=== PATIENT | female | born 1985 | race African-American/Black ===

== ENCOUNTER 2017-11-10 06:52 | Observation (INO) | payer SELFPAY ==
[2017-11-10] MEDS ORDERED: MAGNE/ALUM HYDROXD 30 ML UCUP ONE (07:15)
[2017-11-10] MEDS ORDERED: NA CHLORIDE 0.9% 1,000 ML ONE ×2 (07:32→10:20)
[2017-11-10] MEDS ORDERED: LIDOCAINE VISCOUS 2% SOLN 15 ML UDC ONE (07:32)
[2017-11-10] MEDS ORDERED: ONDANSETRON 4 MG/2 ML VIAL ONE (07:32)
[2017-11-10 07:46] LABS: Absolute Lymphocytes (CBC) 1.5 K/uL (0.7-4.9); Absolute Monocytes 0.5 K/uL (0.1-1.3); Absolute Neutrophil 7.1 K/uL (1.8-8.0); Basophils % 0.4 % (0-1.3); Eosinophils % 0.8 % (0-4.4); Hematocrit 35.4 % (36.0-45.0); MCH 27.1 pg (27.0-35.0); MCV 81.2 fL (80-100); MPV 9.3 fL (7.6-11.3); Monocytes % 5.1 % (3.3-12.3); RBC Red Blood Cell Count 4.36 M/uL (3.86-4.86)
[2017-11-10 07:56] LABS: ALT/SGPT 19 U/L (12-78); AST/SGOT 16 U/L (15-37); Albumin 3.1 g/dL (3.4-5.0); Alkaline Phosphatase 88 U/L (45-117); Amylase Level 44 U/L (25-115); BUN Blood Urea Nitrogen 8 mg/dL (7-18); Bicarbonate 28 mmol/L (21-32); Bilirubin Direct 0.1 mg/dL (0-0.2); Bilirubin Total 0.4 mg/dL (0.2-1.0); Glucose Level 115 mg/dL (74-106); Lipase 135 U/L (73-393); Potassium 3.7 mmol/L (3.5-5.1); Protein, Total 8.3 g/dL (6.4-8.2); Sodium Level 139 mmol/L (136-145)
[2017-11-10] MEDS ORDERED: KETOROLAC 30 MG/ML INJ ONE (07:58)
[2017-11-10 08:35] LABS: Urine Blood 3+ (NEG); Urine Glucose NEGATIVE (NEG); Urine Protein 1+ (NEG); Urine Specific Gravity 1.025 (1.005-1.030); Urine pH 7.5 (5.0-7.0)
--- NOTE | 2017-11-10 09:23 | RAD REPORT ---
EXAM DESCRIPTION: US - Abdomen Exam Limited - 11/10/2017 7:53 am CLINICAL HISTORY: Abdominal pain. Nausea and vomiting COMPARISON: None. FINDINGS: A 1 centimeter gallstone is present. The gallbladder wall measures 4 millimeters. The biliary tree is normal caliber. IMPRESSION: Cholelithiasis Mild gallbladder wall thickening may indicate cholecystitis
--- NOTE | 2017-11-10 09:54 | ER ---
Nurse's Notes [facility] Name: Hilda Myers Age: 32 yrs Sex: Female : 1985 Arrival Date: 11/10/2017 Time: 06:55 Bed 20 Private MD: Diagnosis: Cholecystitis;Cholelithiasis Presentation: 11/10 07:08 Presenting complaint: Patient states: upper abd. pain x 6 days with N/V. Transition of jl7 care: patient was not received from another setting of care. Onset of symptoms was November 04, 2017. Risk Assessment: Do you want to hurt yourself or someone else? Patient reports no desire to harm self or others. Initial Sepsis Screen: Does the patient meet any 2 criteria? No. Patient's initial sepsis screen is negative. Does the patient have a suspected source of infection? No. Patient's initial sepsis screen is negative. Care prior to arrival: None. 07:08 Method Of Arrival: Ambulatory jl7 07:08 Acuity: JOY 3 jl7 Triage Assessment: 07:10 General: Appears in no apparent distress. uncomfortable, Behavior is calm, cooperative, jl7 appropriate for age. Pain: Complains of pain in left upper quadrant and right upper quadrant and epigastric area Pain does not radiate. Pain currently is 10 out of 10 on a pain scale. GI: Abdomen is round non-distended, Abd is soft X 4 quads Abdomen is tender to palpation in right upper quadrant and left upper quadrant. 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 - Social history:: Smoking status: Patient/guardian denies using tobacco. - Ebola Screening: : No symptoms or risks identified at this time. Screenin:35 Abuse screen: Denies threats or abuse. Denies injuries from another. Nutritional ch screening: No deficits noted. Tuberculosis screening: No symptoms or risk factors identified. Fall Risk None identified. Assessment: 07:35 Reassessment: Patient appears in no apparent distress at this time. Patient and/or ch family updated on plan of care and expected duration. Pain level reassessed. Patient is alert, oriented x 3, equal unlabored respirations, skin warm/dry/pink. General: Appears in no apparent distress. uncomfortable, Behavior is cooperative, appropriate for age. Pain: Complains of pain in abdomen and left upper quadrant and right upper quadrant and epigastric area Pain currently is 8 out of 10 on a pain scale. Pain began gradually, a week ago. Neuro: No deficits noted. Respiratory: Airway is patent Respiratory effort is even, unlabored, Breath sounds are diminished bilaterally. pt has a lot of mass, lung sounds slightly dimished due to mass, sound more distant than diminished. GI: Bowel sounds present X 4 quads. Abd is soft and non tender X 4 quads. Reports upper abdominal pain, nausea, vomiting. GI: Abdomen is round obese. Derm: No signs and/or symptoms reported regarding the dermatologic system. Skin is normal, brown. Musculoskeletal: Circulation, motion, and sensation intact. Capillary refill < 3 seconds, in bilateral fingers. toes. Range of motion: intact in all extremities, Swelling absent. 09:21 Reassessment: Patient appears in no apparent distress at this time. Patient and/or ch family updated on plan of care and expected duration. Pain level reassessed. Patient is alert, oriented x 3, equal unlabored respirations, skin warm/dry/pink. pt sleeping in room, no s/s of distress. Patient states feeling better. Patient states symptoms have improved. 09:54 Reassessment: Patient appears in no apparent distress at this time. Patient and/or ch family updated on plan of care and expected duration. Pain level reassessed. Patient is alert, oriented x 3, equal unlabored respirations, skin warm/dry/pink. Patient states feeling better. Patient states symptoms have improved. 09:59 Reassessment: Dr. West at bedside discussing plan of care with pt. ch 10:26 Reassessment: Patient appears in no apparent distress at this time. Patient and/or ch family updated on plan of care and expected duration. Pain level reassessed. Patient is alert, oriented x 3, equal unlabored respirations, skin warm/dry/pink. pt changed out of her clothes, verb understanding of NPO, fluids started. resps even and unlabored. Patient states feeling better. Patient states symptoms have improved. Vital Signs: 07:10 BP 145 / 99; Pulse 93; Resp 18 S; Temp 97.9(TE); Pulse Ox 97% on R/A; Weight 158.76 kg jl7 (R); Height 5 ft. 3 in. (160.02 cm) (R); Pain 10/10; 07:35 BP 147 / 100; Pulse 85; Resp 22; Temp 98.3; Pulse Ox 99% on R/A; Pain 8/10; ch 09:21 BP 124 / 62; Pulse 78; Resp 12; Pulse Ox 92% on R/A; Pain 0/10; ch 09:54 BP 136 / 78; Pulse 76; Resp 14; Temp 97.9; Pulse Ox 99% on R/A; Pain 2/10; ch 07:10 Body Mass Index 62.00 (158.76 kg, 160.02 cm) jl7 ED Course: 06:55 Patient arrived in ED. es 07:01 Jami Garcia FNP-C is PHCP. kb 07:01 Scott Bright MD is Attending Physician. kb 07:06 Maribel Salas, XAVIER is Primary Nurse. 07:09 Triage completed. jl7 07:10 Arm band placed on right wrist. jl7 07:35 Patient has correct armband on for positive identification. Placed in gown. Bed in low ch position. Call light in reach. Side rails up X 1. Adult w/ patient. Pulse ox on. NIBP on. Warm blanket given. 07:35 No provider procedures requiring assistance completed. Initial lab(s) drawn, by oh, ch sent to lab. Urine collected: clean catch specimen. Inserted saline lock: 22 gauge in right hand, using aseptic technique. Blood collected. 07:51 US Abdomen Limited In Process Unspecified. EDMS 07:51 Ultrasound completed. Patient tolerated well. aa4 09:53 Dagoberto West MD is Hospitalizing Provider. kb 13:09 Patient admitted, IV remains in place. intact, bleeding controlled, No redness/swelling ch at site. Pressure dressing applied. Administered Medications: 07:39 Drug: GI Cocktail without - (Maalox Suspension 30 ml, Lidocaine Liquid 2 % 15 ch ml) Route: PO; 09:54 Follow up: Response: No adverse reaction; No change in condition 07:39 Drug: NS 0.9% 1000 ml Route: IV; Rate: 1000 ml; Site: right jugular; ch 09:54 Follow up: IV Status: Completed infusion; IV Intake: 1000ml ch 07:39 Drug: Zofran 4 mg Route: IVP; Site: right antecubital; ch 09:53 Follow up: Response: No adverse reaction; Marked relief of symptoms ch 08:10 Drug: TORadol 30 mg Route: IVP; Site: right hand; ch 09:53 Follow up: Response: No adverse reaction; Marked relief of symptoms ch 10:30 Drug: NS 0.9% 1000 ml Route: IV; Rate: 125 ml/hr; Site: left hand; ch 10:37 Follow up: IV Status: Infusion continued upon admission ch 10:37 Drug: Zosyn 3.375 grams {Note: antibiotic is not re constituted yet. sent with OR nurse. .} Route: IVPB; Infused Over: 60 mins; Site: right hand; 10:38 Follow up: IV Status: Infusion continued upon admission ch Intake: 09:54 IV: 1000ml; Total: 1000ml. Outcome: 09:53 Decision to Hospitalize by Provider. kb 10:30 Admitted to OR accompanied by nurse, via wheelchair, with chart. 10:30 Condition: stable 10:30 Instructed on the need for admit. 10:39 Patient left the ED. Signatures: Dispatcher [employer] Jami Quinteros, LAURA ENGLAND-Maribel Hardwick, RN RN Tierra Romero Amanda aa4 Leal, Jahala RN RN jl7
--- NOTE | 2017-11-10 09:54 | EDPHYS ---
Physician Documentation [facility] Name: Hilda Myers Age: 32 yrs Sex: Female : 1985 Arrival Date: 11/10/2017 Time: 06:55 Bed 20 Private MD: ED Physician Scott Bright HPI: 11/10 07:09 This 32 yrs old Black Female presents to ER via Unassigned with complaints of Abdominal kb Pain, Nausea/Vomiting, Shortness Of Breath. 07:09 The patient presents with abdominal pain in the epigastric area. Onset: The kb symptoms/episode began/occurred 6 day(s) ago. The symptoms do not radiate. Associated signs and symptoms: Pertinent positives: nausea and vomiting, Pertinent negatives: anorexia, blood in stools, chest pain, constipation, diarrhea, dysuria, fever, headache, hematuria, palpitations, shortness of breath, vaginal discharge, vomiting blood. The symptoms are described as constant. Modifying factors: The symptoms are alleviated by nothing, the symptoms are aggravated by nothing. Severity of pain: At its worst the pain was moderate in the emergency department the pain is unchanged. The patient has experienced a previous episode, last year, and the symptoms today are exactly the same, symptoms resolved after GI cocktail. The patient has been recently seen by a physician: the ER physician, out of Town, in [facility], with similar presenting complaints, but the patient's symptoms have persisted. Pt states she started having epigastric pain, nausea and vomiting 6 days ago. Pain has been constant since onset, nothing makes it better or worse. Took antacids without relief. Unable to tolerate solids, has not tried fluids. PCP: none. 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 - Social history:: Smoking status: Patient/guardian denies using tobacco. - Ebola Screening: : No symptoms or risks identified at this time. ROS: 07:06 Constitutional: Negative for fever, chills, and weight loss, Cardiovascular: Negative kb for chest pain, palpitations, and edema, Respiratory: Negative for shortness of breath, cough, wheezing, and pleuritic chest pain, MS/Extremity: Negative for injury and deformity, Skin: Negative for injury, rash, and discoloration, Neuro: Negative for headache, weakness, numbness, tingling, and seizure. 07:06 Abdomen/GI: Positive for abdominal pain, nausea and vomiting, Negative for diarrhea, constipation, abdominal cramps, abdominal distension, anorexia. Exam: 07:06 Constitutional: This is a well developed, well nourished patient who is awake, alert, kb and in no acute distress. Head/Face: Normocephalic, atraumatic. Chest/axilla: Normal chest wall appearance and motion. Nontender with no deformity. No lesions are appreciated. Cardiovascular: Regular rate and rhythm with a normal S1 and S2. No gallops, murmurs, or rubs. Normal PMI, no JVD. No pulse deficits. Respiratory: Lungs have equal breath sounds bilaterally, clear to auscultation and percussion. No rales, rhonchi or wheezes noted. No increased work of breathing, no retractions or nasal flaring. Skin: Warm, dry with normal turgor. Normal color with no rashes, no lesions, and no evidence of cellulitis. MS/ Extremity: Pulses equal, no cyanosis. Neurovascular intact. Full, normal range of motion. Neuro: Awake and alert, GCS 15, oriented to person, place, time, and situation. Cranial nerves II-XII grossly intact. Motor strength 5/5 in all extremities. Sensory grossly intact. Cerebellar exam normal. Normal gait. 07:06 Abdomen/GI: Inspection: abdomen appears normal, Bowel sounds: normal, in all quadrants, Palpation: soft, in all quadrants, mild abdominal tenderness, in the right upper quadrant and left upper quadrant, moderate abdominal tenderness, in the epigastric area. Vital Signs: 07:10 BP 145 / 99; Pulse 93; Resp 18 S; Temp 97.9(TE); Pulse Ox 97% on R/A; Weight 158.76 kg jl7 (R); Height 5 ft. 3 in. (160.02 cm) (R); Pain 10/10; 07:35 BP 147 / 100; Pulse 85; Resp 22; Temp 98.3; Pulse Ox 99% on R/A; Pain 8/10; ch 09:21 BP 124 / 62; Pulse 78; Resp 12; Pulse Ox 92% on R/A; Pain 0/10; ch 09:54 BP 136 / 78; Pulse 76; Resp 14; Temp 97.9; Pulse Ox 99% on R/A; Pain 2/10; ch 07:10 Body Mass Index 62.00 (158.76 kg, 160.02 cm) jl7 MDM: 07:04 Patient medically screened. kb 07:06 Data reviewed: vital signs, nurses notes. Data interpreted: Pulse oximetry: on room air kb is 100 %. Interpretation: normal. 09:48 Counseling: I had a detailed discussion with the patient and/or guardian regarding: the kb historical points, exam findings, and any diagnostic results supporting the discharge/admit diagnosis, lab results, radiology results, the need for further work-up and treatment in the hospital. Physician consultation: Dagoberto West MD was contacted at 09:51, regarding consult, patient's condition, and will see patient in inpatient room. 11/10 07:05 Order name: Amylase, Serum; Complete Time: 08:01 kb 11/10 07:05 Order name: Basic Metabolic Panel; Complete Time: 08:01 kb 11/10 07:05 Order name: CBC with Diff; Complete Time: 07:53 kb 11/10 07:05 Order name: Creatinine for Radiology; Complete Time: 07:54 kb 11/10 07:05 Order name: Hepatic Function; Complete Time: 08:01 kb 11/10 07:05 Order name: Lipase; Complete Time: 08:01 kb 11/10 07:05 Order name: US Abdomen Limited; Complete Time: 09:23 kb 11/10 07:19 Order name: Urine Dipstick--Ancillary (enter results) bd 11/10 07:19 Order name: Urine --Ancillary (enter results) bd 11/10 07:20 Order name: Urine Dipstick-Ancillary; Complete Time: 08:35 EDMS 11/10 07:20 Order name: Urine --Ancillary; Complete Time: 08:35 EDMS 11/10 07:05 Order name: Urine Test (obtain specimen); Complete Time: 07:39 kb 11/10 07:05 Order name: IV Saline Lock; Complete Time: 07:39 kb 11/10 07:05 Order name: Labs collected and sent; Complete Time: 07:39 kb 11/10 07:05 Order name: Urine Dipstick-Ancillary (obtain specimen); Complete Time: 07:39 kb 11/10 09:29 Order name: PO challenge; Complete Time: 09:53 kb 11/10 10:27 Order name: EKG; Complete Time: 10:27 ch Administered Medications: 07:39 Drug: GI Cocktail without - (Maalox Suspension 30 ml, Lidocaine Liquid 2 % 15 ch ml) Route: PO; 09:54 Follow up: Response: No adverse reaction; No change in condition ch 07:39 Drug: NS 0.9% 1000 ml Route: IV; Rate: 1000 ml; Site: right jugular; ch 09:54 Follow up: IV Status: Completed infusion; IV Intake: 1000ml 07:39 Drug: Zofran 4 mg Route: IVP; Site: right antecubital; 09:53 Follow up: Response: No adverse reaction; Marked relief of symptoms ch 08:10 Drug: TORadol 30 mg Route: IVP; Site: right hand; 09:53 Follow up: Response: No adverse reaction; Marked relief of symptoms ch 10:30 Drug: NS 0.9% 1000 ml Route: IV; Rate: 125 ml/hr; Site: left hand; ch 10:37 Follow up: IV Status: Infusion continued upon admission 10:37 Drug: Zosyn 3.375 grams {Note: antibiotic is not re constituted yet. sent with OR nurse. .} Route: IVPB; Infused Over: 60 mins; Site: right hand; 10:38 Follow up: IV Status: Infusion continued upon admission Disposition: 11/10/17 09:53 Hospitalization ordered by Dagoberto West for Observation. Preliminary diagnosis are Cholecystitis, Cholelithiasis. - Bed requested for Telemetry/MedSurg (observation). - Status is Observation. - Condition is Stable. - Problem is new. - Symptoms have improved. UTI on Admission? No Addendum: 11/11/2017 11:13 Co-signature as Attending Physician, Scott Bright MD I agree with the assessment and c waller plan of care. Signatures: Dispatcher [employer] EDJami Purdy, TOMÁS-Tray ENGLAND-Maribel Hardwick RN Scott Goncalves ch, MD MD cha Leal, Jahala RN RN jl7 Corrections: (The following items were deleted from the chart) 11/10 10:37 10:27 EKG - Nurse/Tech ordered. [facility] 10:39 09:53 Hospitalization Ordered by Dagoberto West MD for Observation. Preliminary diagnosis is Cholecystitis; Cholelithiasis. Bed requested for Telemetry/MedSurg (observation). Status is Observation. Condition is Stable. Problem is new. Symptoms have improved. UTI on Admission? No. kb
[2017-11-10] MEDS ORDERED: PIPER/TAZO/NS 3.375gm 3.375 GM/100 ML BAG ONE (10:20)
[2017-11-10] MEDS ORDERED: ACETAMINOPHEN 500 MG TAB PO PRN (10:25)
[2017-11-10] MEDS ORDERED: MORPHINE 4 MG/ML SYR IV PRN ×2 (10:25→13:33)
[2017-11-10] MEDS ORDERED: ONDANSETRON 4 MG/2 ML VIAL IV PRN (10:25)
[2017-11-10] MEDS ORDERED: GLYCOPYRROLATE 0.2 MG/ML SYR ONE (10:26)
[2017-11-10] MEDS ORDERED: PROPOFOL 200 MG/20 ML VIAL IV ONE ×2 (10:26→12:17)
[2017-11-10] MEDS ORDERED: LIDOCAINE 1% MPF 5 ML VIAL ONE (10:27)
[2017-11-10] MEDS ORDERED: FENTANYL CITR 100 MCG/2 ML ONE ×2 (10:28→11:15)
[2017-11-10] MEDS ORDERED: NEOSTIGMINE 1 MG/ML -5 ML SYRINGE ONE (10:30)
[2017-11-10] MEDS ORDERED: ROCURONIUM 50 MG/5 ML VIAL IV ONE (10:32)
[2017-11-10] MEDS ORDERED: MIDAZOLAM HCL 2 MG/2 ML INJ ONE (10:32)
[2017-11-10] MEDS ORDERED: Ringers Lactate 1,000 ML IV ONE (12:13)
--- NOTE | 2017-11-10 13:02 | P.BOP ---
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
[2017-11-10] MEDS: MEPERIDINE HCL 50 MG/ML AMP ONE ×2 (13:13→13:24)
[2017-11-10] MEDS: HYDROCODONE/APAP 7.5/325 MG TAB PO PRN (16:03)
[2017-11-10] MEDS: NA CHLORIDE 0.9% 1,000 ML IV SCH ×2 (16:18→18:01)
[2017-11-10] MEDS: PIPER/TAZO/NS 3.375gm 3.375 GM/100 ML BAG IVPB SCH (18:00)
[2017-11-10 20:34] VITALS: BMI 61.9
--- NOTE | 2017-11-10 22:06 | HP ---
Date of Admission: 11/10/2017 Reason For Service: Epigastric right upper quadrant pain, intractable. History Of Present Illness: This is a case of a 32-year-old patient, with 6 days history of nausea o r vomiting, epigastirc right upper quadrant pain radiating to the back associated with nausea and vom iting. The patient has been on and off for the last month having pain. At one point, she claims she went to the [facility] ER. She denies any dysuria, hematuria, hematochezia, or melena. Denies any rec ent traveling out of the country. Denies any family member sick at home. Past Surgical History: Includes tubal ligation. Last menstrual period 10/29/2017. Allergies: NONE. Past Medical History: None. Social History: She does not smoke. She does not drink alcohol. Family History: Unremarkable. Review of Systems: Constitutional: Denies any fever. The patient is morbidly obese. Respiratory: Denies any shortness of breath. Gastrointestinal: As above. She denies any jaundice or ictericia. Genitourinary: Denies any dysuria or vaginal discharge. Physical Examination: General: The patient is awake and alert. Morbid obesity present. HEENT: Pupils are equal and reactive, anicteric. Neck: Supple. Chest: Clear. Abdomen: Epigastric right upper quadrant pain with Brewster sign positive. The rest of the abdomen is soft and depressible. Breasts: Deferred. Rectal: Deferred. Pelvic: Deferred. Extremities: Good capillary refill. Neuro: Cranial nerves 2 through 12 grossly within normal limits. Laboratory Data: WBC count is 9.1 with hemoglobin of 11.8 glucose 115, UA nitrite negativ e. Ultrasound interpreted by Dr. Ashton as cholelithiasis with cholecystitis. Assessment: This is a 32-year-old patient with acute cholecystitis, symptomatic cholelithiasis, intr actable abdominal pain, and she has been there with this for a more than a week and eventually came t o the ER once again, since she claims she has been in before and she wants to have surgery to be done , laparoscopic fully explained as one of the option which included, but not limited to inf ection, bleeding, damage to adjacent structures, anesthesia complication, choledocholithiasis, bile l eak, pancreatitis, ND, or even . She also understands this may not relieve any symptoms. She m ight need more than one surgical intervention. The OR was notified. We are going to proceed with toby aguayo. DARLINE Voice ID: [id number]
--- NOTE | 2017-11-10 23:39 | OP ---
Date of Procedure: 11/10/2017 Surgeon: Dagoberto West MD Applications Sales Representative: MANUEL Hebert. Preoperative Diagnoses: Acute cholecystitis, intractable abdominal pain, symptomatic cholelithiasis, morbid obesity. Postoperative Diagnoses: Acute cholecystitis, intractable abdominal pain, symptomatic cholelithiasis , morbid obesity. Procedure: Laparoscopic cholecystectomy. Specimen: Gallbladder. Findings: Distended gallbladder with multi stone cholelithiasis, edematous gallbladder wall. Anesthesia: General plus local. Drains: UMER #10. Indications: This is the case of a 32-year-old patient, comes to us with above diagnoses. Fully exp lained the benefits, alternatives, and risks of laparoscopic, possible open cholecystectomy which inc lude, but are not limited to infection, bleeding, damage to adjacent structures, anesthesia complicat ion, choledocholithiasis, bile leak, pancreatitis, HI, and even . She also understands this may not relieve any symptoms. She might need more than one surgical intervention. She understood and s igned the consent. The patient advised the importance of weight loss. Description Of Procedure: The patient was brought emergently to operating room and placed in supine position. Anesthesia was done without complication. Abdominal area was prepped and draped in a ster ile fashion. Marcaine 0.5% injected for local anesthetic, followed by sharp incision of the skin in the infraumbilical region. Incision was carried down to the fascia, which was opened under direct vi alan. Peritoneum was encountered, opened under direct vision. Vicryl #1 placed inside the fascia. Rashad trocar was carefully introduced. No bleeding was obtained. I placed 3 more trocars in [facility] upper quadrant under direct visualization. The gallbladder looked distended, so we put an Endo n eedle in the gallbladder under direct visualization and aspirated the content. The needle was remove d under direct visualization and grasper placed in the fundus of the gallbladder, another grasper in the infundibulum, retracted the gallbladder in the inferolateral fashion exposing the triangle of Lico ot and obtaining critical view of safety. Adhesions of the gallbladder were carefully removed until we identified the cystic duct and cystic artery. They were identified circumferentially, and a conne ction between those and the gallbladder were clearly identified. I proceeded to ligate those by angelica guan at least 2 clips proximal, 1 clip distal, and ligation in middle. Same was done with the cystic ar nupur. No bile leak. No bleeding. The gallbladder was removed from the liver using Bovie cauterizer and removed from the abdominal cavity using an EndoCatch through the umbilical incision. The area w as inspected once again. A UMER drain was left in the area since the area is very inflamed to help us to drain that area and it was exiting through one of the trocar sites and secured in place with 3-0 n ylon. We inspected the area once again. Clips are intact. No bleeding. No bile leak. At that mom ent, I proceeded to remove the trocars under direct vision. Deflated the pneumoperitoneum. Closed t he fascia with #1 Vicryl. Irrigated subcutaneous tissue, closed that with 3-0 chromic, and skin with lu. Sponge count and instrument counts were correct. The patient tolerated the procedure well . The patient was sent to recovery in stable condition. MEG/KAMERON Voice ID: [id number] Report ID: [id number]
[2017-11-11] MEDS: HYDROCODONE/APAP 7.5/325 MG TAB PO PRN ×2 (00:29→09:26)
[2017-11-11] MEDS: PIPER/TAZO/NS 3.375gm 3.375 GM/100 ML BAG IVPB SCH ×2 (00:29→09:27)
[2017-11-11] MEDS: NA CHLORIDE 0.9% 1,000 ML IV SCH ×3 (02:25→09:27)
[2017-11-11 03:36] VITALS: O2SAT 94
[2017-11-11 06:01] LABS: Absolute Lymphocytes (CBC) 2.2 K/uL (0.7-4.9); Absolute Monocytes 0.5 K/uL (0.1-1.3); Absolute Neutrophil 5.8 K/uL (1.8-8.0); Basophils % 0.3 % (0-1.3); Eosinophils % 1.2 % (0-4.4); Hematocrit 31.6 % (36.0-45.0); Lymphocytes % 25.5 % (15.3-44.8); MCH 28.3 pg (27.0-35.0); MCV 83.7 fL (80-100); MPV 9.5 fL (7.6-11.3); RBC Red Blood Cell Count 3.77 M/uL (3.86-4.86)
[2017-11-11 06:44] LABS: ALT/SGPT 33 U/L (12-78); AST/SGOT 40 U/L (15-37); Albumin 2.4 g/dL (3.4-5.0); Alkaline Phosphatase 71 U/L (45-117); BUN Blood Urea Nitrogen 6 mg/dL (7-18); Bicarbonate 26 mmol/L (21-32); Bilirubin Direct 0.2 mg/dL (0-0.2); Bilirubin Total 0.6 mg/dL (0.2-1.0); Glucose Level 92 mg/dL (74-106); Lipase 81 U/L (73-393); Potassium 3.8 mmol/L (3.5-5.1); Protein, Total 6.9 g/dL (6.4-8.2); Sodium Level 143 mmol/L (136-145)
--- NOTE | 2017-11-11 12:39 | P.DS ---
Admission Date: 11/10/17 Discharge Date: 11/11/17 Disposition: ROUTINE DISCHARGE Discharge Condition: GOOD Vital Signs/Physical Exam: Temp Pulse Resp BP Pulse Ox 98.1 F 101 H 18 120/79 95 11/11/17 08:00 11/11/17 08:00 11/11/17 08:00 11/11/17 08:00 11/11/17 08:00 General: Alert, Oriented x3 HEENT: PERRLA, EOMI Neck: Supple Respiratory: Normal air movement Gastrointestinal: Soft and benign, Other (Elmer clear) Musculoskeletal: No erythema Integumentary: No rashes, No breakdown, No erythema, No warmth, No cyanosis Neurological: Normal speech Laboratory Data at Discharge: WBC 8.7 K/uL (4.3-10.9) 11/11/17 04:50 Hgb 10.7 g/dL (12.0-15.0) L 11/11/17 04:50 Hct 31.6 % (36.0-45.0) L 11/11/17 04:50 Plt Count 250 K/uL (152-406) 11/11/17 04:50 Sodium 143 mmol/L (136-145) 11/11/17 04:50 Potassium 3.8 mmol/L (3.5-5.1) 11/11/17 04:50 BUN 6 mg/dL (7-18) L 11/11/17 04:50 Creatinine 0.80 mg/dL (0.55-1.3) 11/11/17 04:50 Glucose 92 mg/dL (74-106) 11/11/17 04:50 Total Bilirubin 0.6 mg/dL (0.2-1.0) 11/11/17 04:50 AST 40 U/L (15-37) H 11/11/17 04:50 ALT 33 U/L (12-78) 11/11/17 04:50 Alkaline Phosphatase 71 U/L (45-117) 11/11/17 04:50 Amylase 44 U/L (25-115) 11/10/17 07:24 Lipase 81 U/L (73-393) 11/11/17 04:50 Home Medications: NK [No Home Meds] 11/10/17 Patient Discharge Instructions: keep area dry for 24h then may shower with dressing off. Diet: AHA Activity: No lifting more than 10 lbs Followup: Dagoberto West MD [ACTIVE - CAN ADMIT] -
[2017-11-11 13:45] VITALS: BP 106/62; TEMP 98.2
== END 2017-11-11 14:52 | disposition home or self-care (01) ==
LOC: ER 06:52 → ERHOLD 09:54 → 2ND 13:41
PROVIDERS: ADMIT Surgery; ATTEND Surgery
PROC: 0FT44ZZ Resection of Gallbladder, Percutaneous Endoscopic Approach (ICD-10-PCS; principal; 2017-11-10 12:00)
DX: K80.00 Calculus of gallbladder with acute cholecystitis without obstruction (principal); E66.01 Morbid (severe) obesity due to excess calories; Z68.44 Body mass index [BMI] 60.0-69.9, adult
CPT/HCPCS: 36415; 76705; 80048; 80076; 81003; 81025; 82150; 83690; 85025; 88304; 99285; G0378; J2175; J2250; J2405; J2543; J2710; J3010; J7030

== ENCOUNTER 2018-10-10 19:29 | Emergency (ER) | payer SELFPAY ==
--- OUTSIDE RECORDS SUMMARY | 2018-10-10 19:32 | XMS REPORT ---
:1985 [facility] Address [address] [place] [address] [facility]. [address] [place] [address] Care Team Providers Name Role Phone DR ROSA ISELA THOMAS Unavailable Unavailable Problems This patient has no known problems. Allergies, Adverse Reactions, Alerts This patient has no known allergies or adverse reactions. Medications This patient has no known medications. Encounters Start End Encounter Admission Attending Care Care Encounter Date/Time Date/Time Type Type Clinicians Facility Department ID 2017-11-16 2017-11-16 Emergency E ROSA ISELA THOMAS [facility] [id number] 11:22:00 12:19:00
[2018-10-10 20:51] LABS: Absolute Lymphocytes (CBC) 2.7 K/uL (0.7-4.9); Basophils % 0.5 % (0-1.3); Hematocrit 35.4 % (36.0-45.0); Lymphocytes % 35.2 % (15.3-44.8); MPV 9.2 fL (7.6-11.3); Monocytes % 7.2 % (3.3-12.3)
[2018-10-10 20:54] LABS: Protime INR 1.05
--- NOTE | 2018-10-10 20:56 | RAD REPORT ---
EXAM DESCRIPTION: RAD - Chest Single View - 10/10/2018 8:51 pm CLINICAL HISTORY: SOB Chest pain. COMPARISON: <Comparisons> FINDINGS: Portable technique limits examination quality. The lungs are grossly clear. The heart is mildly enlarged in size. No displaced fractures.
[2018-10-10 21:02] LABS: BUN Blood Urea Nitrogen 10 mg/dL (7-18); Bicarbonate 28 mmol/L (21-32); Glucose Level 100 mg/dL (74-106); Potassium 3.6 mmol/L (3.5-5.1); Sodium Level 143 mmol/L (136-145)
[2018-10-10 21:09] LABS: ALT/SGPT 16 U/L (12-78); AST/SGOT 10 U/L (15-37); Albumin 2.9 g/dL (3.4-5.0); Alkaline Phosphatase 83 U/L (45-117); Bilirubin Direct 0.1 mg/dL (0-0.2); Bilirubin Total 0.3 mg/dL (0.2-1.0); Magnesium 1.7 mg/dL (1.8-2.4); NT PRO-BNP 21 pg/mL (<125); Protein, Total 7.4 g/dL (6.4-8.2); Troponin (Emerg Dept Use Only) < 0.02 ng/mL (0.0-0.045)
[2018-10-10 22:27] LABS: Urine Blood NEGATIVE (NEG); Urine Glucose NEGATIVE (NEG); Urine Protein 1+ (NEG); Urine Specific Gravity >1.030 (1.005-1.030); Urine pH 6.5 (5.0-7.0)
[2018-10-10 22:58] LABS: Urine Bacteria LOADED /HPF (<20); Urine Culture Reflex Order REFLEXED; Urine RBC NONE SEEN /HPF (NONE SEEN)
--- NOTE | 2018-10-10 23:12 | ER ---
Nurse's Notes [facility] Name: Hilda Myers Age: 33 yrs Sex: Female : 1985 Arrival Date: 10/10/2018 Time: 19:32 Bed 15 Private MD: None, None Diagnosis: Chest pain, unspecified;Essential (primary) hypertension;Paresthesia of skin Presentation: 10/10 19:34 Presenting complaint: Patient states: I have been having sharp chest pains in the right la1 side for about a week and numbness for the past couple months on my right side. I started having pain on my right side about a week ago. Transition of care: patient was not received from another setting of care. Onset of symptoms was October 10, 2018. Risk Assessment: Do you want to hurt yourself or someone else? Patient reports no desire to harm self or others. Initial Sepsis Screen: Does the patient meet any 2 criteria? No. Patient's initial sepsis screen is negative. Does the patient have a suspected source of infection? No. Patient's initial sepsis screen is negative. Care prior to arrival: None. 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 - Social history:: Smoking status: Patient/guardian denies using tobacco. - Ebola Screening: : No symptoms or risks identified at this time. Assessment: 20:10 General: Appears in no apparent distress. uncomfortable, Behavior is calm, cooperative, jb4 appropriate for age. Pain: Complains of pain in chest and right arm Pain does not radiate. Pain currently is 8 out of 10 on a pain scale. Quality of pain is described as stabbing, Pain began 1 day ago. Neuro: Level of Consciousness is awake, alert, obeys commands, Oriented to person, place, time, situation. Cardiovascular: Patient's skin is warm and dry. Respiratory: Airway is patent Respiratory effort is even, unlabored, Respiratory pattern is regular, symmetrical. GI: No signs and/or symptoms were reported involving the gastrointestinal system. : No signs and/or symptoms were reported regarding the genitourinary system. EENT: No signs and/or symptoms were reported regarding the EENT system. Derm: Skin is intact, Skin is dry, Skin is normal, Skin temperature is warm. Musculoskeletal: Circulation, motion, and sensation intact. Range of motion: intact in all extremities. 21:00 Reassessment: Patient appears in no apparent distress at this time. Patient and/or jb4 family updated on plan of care and expected duration. Pain level reassessed. Patient is alert, oriented x 3, equal unlabored respirations, skin warm/dry/pink. 22:00 Reassessment: Patient appears in no apparent distress at this time. Patient and/or jb4 family updated on plan of care and expected duration. Pain level reassessed. Patient is alert, oriented x 3, equal unlabored respirations, skin warm/dry/pink. 23:30 Reassessment: Patient appears in no apparent distress at this time. Patient is alert, aa1 oriented x 3, equal unlabored respirations, skin warm/dry/pink. Discussed d/c \T\ f/u instructions to pt; denies questions or concerns at this time. Amb to lobby with steady gait. Patient states feeling better. Vital Signs: 19:36 BP 135 / 78; Pulse 85; Resp 16; Temp 98.4; Pulse Ox 98% on R/A; Weight 170.1 kg; Height la1 5 ft. 3 in. (160.02 cm); 21:25 BP 125 / 83; Pulse 90; Resp 16; Pulse Ox 97% on R/A; jb4 22:45 BP 130 / 91; Pulse 81; Resp 16; Pulse Ox 98% on R/A; jb4 19:36 Body Mass Index 66.43 (170.10 kg, 160.02 cm) la1 ED Course: 19:32 Patient arrived in ED. mr 19:32 None, None is Private Physician. mr 19:35 Triage completed. la1 19:36 Arm band placed on left wrist. la1 19:57 Jacinto Méndez RN is Primary Nurse. jb4 19:59 Lake Lim MD is Attending Physician. gs 20:51 XRAY Chest (1 view) In Process Unspecified. EDMS 23:30 No provider procedures requiring assistance completed. IV discontinued, intact, aa1 bleeding controlled, No redness/swelling at site. Pressure dressing applied. Administered Medications: 23:03 Drug: Tylenol 650 mg Route: PO; jb4 Outcome: 23:12 Discharge ordered by . gs 23:30 Discharged to home ambulatory, with significant other. aa1 23:30 Condition: good 23:30 Discharge instructions given to patient, significant other, Instructed on discharge instructions, follow up and referral plans. medication usage, Demonstrated understanding of instructions, follow-up care, medications, Prescriptions given X 1. 23:39 Patient left the ED. aa1 Signatures: Dispatcher [employer] EDMS Ellen Vasquez RN RN aa1 Phoebe Senior Lee, RN RN la1 Jacinto Méndez RN RN jb4 Lake Lim MD MD gs
--- NOTE | 2018-10-10 23:12 | EDPHYS ---
Physician Documentation [facility] Name: Hilda Myers Age: 33 yrs Sex: Female : 1985 Arrival Date: 10/10/2018 Time: 19:32 Bed 15 Private MD: None, None ED Physician Lake Lim HPI: 10/10 23:06 This 33 yrs old Black Female presents to ER via Wheelchair with complaints of Chest gs Pain. 23:06 The patient or guardian reports chest pain that is located primarily in the anterior gs chest wall. The pain does not radiate. Associated signs and symptoms: Pertinent positives: lower extremity swelling, Pertinent negatives: lower extremity pain, shortness of breath. The chest pain is described as a heaviness. Duration: The patient or guardian reports multiple episodes, that are intermittent, that wax and wane, with no pattern, the episodes last approximately 3 minute(s). Modifying factors: The symptoms are alleviated by nothing. the symptoms are aggravated by nothing. Severity of pain: At its worst the pain was moderate in the emergency department the pain has resolved. The patient has experienced similar episodes in the past, several times. 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 - Social history:: Smoking status: Patient/guardian denies using tobacco. - Ebola Screening: : No symptoms or risks identified at this time. ROS: 23:06 All other systems are negative. gs 23:06 MS/extremity: Positive for paresthesias, rue. gs Exam: 23:06 Head/Face: Normocephalic, atraumatic. Eyes: Pupils equal round and reactive to light, gs extra-ocular motions intact. Lids and lashes normal. Conjunctiva and sclera are non-icteric and not injected. Cornea within normal limits. Periorbital areas with no swelling, redness, or edema. ENT: Nares patent. No nasal discharge, no septal abnormalities noted. Tympanic membranes are normal and external auditory canals are clear. Oropharynx with no redness, swelling, or masses, exudates, or evidence of obstruction, uvula midline. Mucous membranes moist. Neck: Trachea midline, no thyromegaly or masses palpated, and no cervical lymphadenopathy. Supple, full range of motion without nuchal rigidity, or vertebral point tenderness. No Meningismus. Chest/axilla: Normal chest wall appearance and motion. Nontender with no deformity. No lesions are appreciated. Cardiovascular: Regular rate and rhythm with a normal S1 and S2. No gallops, murmurs, or rubs. Normal PMI, no JVD. No pulse deficits. Respiratory: Lungs have equal breath sounds bilaterally, clear to auscultation and percussion. No rales, rhonchi or wheezes noted. No increased work of breathing, no retractions or nasal flaring. Abdomen/GI: Soft, non-tender, with normal bowel sounds. No distension or tympany. No guarding or rebound. No evidence of tenderness throughout. Back: No spinal tenderness. No costovertebral tenderness. Full range of motion. Skin: Warm, dry with normal turgor. Normal color with no rashes, no lesions, and no evidence of cellulitis. MS/ Extremity: Pulses equal, no cyanosis. Neurovascular intact. Full, normal range of motion. Neuro: Awake and alert, GCS 15, oriented to person, place, time, and situation. Cranial nerves II-XII grossly intact. Motor strength 5/5 in all extremities. Sensory grossly intact. Cerebellar exam normal. Normal gait. 23:06 Constitutional: The patient appears alert, awake, obese. 23:06 Cardiovascular: Edema: 1+ edema to level of left midcalf and right midcalf. gs 23:06 ECG was reviewed by the Attending Physician. Vital Signs: 19:36 BP 135 / 78; Pulse 85; Resp 16; Temp 98.4; Pulse Ox 98% on R/A; Weight 170.1 kg; Height la1 5 ft. 3 in. (160.02 cm); 21:25 BP 125 / 83; Pulse 90; Resp 16; Pulse Ox 97% on R/A; jb4 22:45 BP 130 / 91; Pulse 81; Resp 16; Pulse Ox 98% on R/A; jb4 19:36 Body Mass Index 66.43 (170.10 kg, 160.02 cm) la1 MDM: 20:10 Patient medically screened. gs 23:06 Differential diagnosis: abnormal EKG, coronary artery disease chest wall pain, gs essential htn. Data reviewed: vital signs, nurses notes, lab test result(s), EKG, radiologic studies. Counseling: I had a detailed discussion with the patient and/or guardian regarding: the historical points, exam findings, and any diagnostic results supporting the discharge/admit diagnosis, the presence of at least one elevated blood pressure reading (>120/80) during this emergency department visit. 10/10 20:11 Order name: Basic Metabolic Panel 10/10 20:11 Order name: CBC with Diff; Complete Time: 21:00 10/10 20:11 Order name: LFT's; Complete Time: 23:04 10/10 20:11 Order name: Magnesium; Complete Time: 23:04 10/10 20:11 Order name: NT PRO-BNP; Complete Time: 23:04 10/10 20:11 Order name: PT-INR; Complete Time: 21:00 10/10 20:11 Order name: Troponin (emerg Dept Use Only); Complete Time: 23:04 10/10 20:11 Order name: XRAY Chest (1 view); Complete Time: 21:00 10/10 20:11 Order name: Urine Microscopic Only; Complete Time: 23:04 10/10 20:12 Order name: Basic Metabolic Panel; Complete Time: 23:04 [facility] 10/10 22:16 Order name: Urine Dipstick--Ancillary (enter results); Complete Time: 23:04 [facility] 10/10 22:16 Order name: Urine --Ancillary (enter results); Complete Time: 23:04 [facility] 10/10 23:00 Order name: Urine Culture [facility] 10/10 20:11 Order name: EKG; Complete Time: 20:12 10/10 20:11 Order name: Cardiac monitoring; Complete Time: 20:37 10/10 20:11 Order name: EKG - Nurse/Tech; Complete Time: 20:15 10/10 20:11 Order name: IV Saline Lock; Complete Time: 20:37 10/10 20:11 Order name: Labs collected and sent; Complete Time: 20:36 10/10 20:11 Order name: O2 Per Protocol; Complete Time: 22:35 10/10 20:11 Order name: O2 Sat Monitoring; Complete Time: 22:35 10/10 20:11 Order name: Urine Test (obtain specimen); Complete Time: 22:35 10/10 20:11 Order name: Urine Dipstick-Ancillary (obtain specimen); Complete Time: 22:35 EC:06 Rate is 83 beats/min. Rhythm is regular. FL interval is normal. QRS interval is normal. No Q waves. T waves are Normal. No ST changes noted. Clinical impression: Abnormal EKG without significant change. Interpreted by me. Administered Medications: 23:03 Drug: Tylenol 650 mg Route: PO; jb4 Disposition: 10/10/18 23:12 Discharged to Home. Impression: Chest pain, unspecified, Essential (primary) hypertension, Paresthesia of skin. - Condition is Stable. - Discharge Instructions: Nonspecific Chest Pain, Hypertension, Paresthesia, [id number]. - Prescriptions for Hydrochlorothiazide 12.5 mg Oral Capsule - take 1 tablet by ORAL route once daily; 15 tablet. - Medication Reconciliation Form, Thank You Letter, Antibiotic Education, Prescription Opioid Use form. - Follow up: Private Physician; When: 2 - 3 days; Reason: Re-evaluation by your physician. Signatures: Dispatcher [employer] EDMS Ellen Vasquez RN RN aa1 Tucker Harmon RN RN la1 Jacinto Méndez RN RN jb4 Lake Lim MD MD Corrections: (The following items were deleted from the chart) 23:39 23:12 10/10/2018 23:12 Discharged to Home. Impression: Chest pain, unspecified; aa1 Essential (primary) hypertension; Paresthesia of skin. Condition is Stable. Forms are Medication Reconciliation Form, Thank You Letter, Antibiotic Education, Prescription Opioid Use. Follow up: Private Physician; When: 2 - 3 days; Reason: Re-evaluation by your physician.
[2018-10-10] MEDS ORDERED: ACETAMINOPHEN 325 MG TABLET ONE (23:15)
[2018-10-10 23:47] VITALS: TEMP 98.4
[2018-10-10 23:57] VITALS: BP 130/91; O2SAT 98
--- NOTE | 2018-10-11 05:59 | EKG ---
Test Date: 2018-10-10 Test Time: 20:09:08 Nuclear Pharmacist: NARCISA MEASUREMENT RESULTS: Intervals: Rate: 83 ID: [id number] QRSD: 96 QT: 392 QTc: 460 [place]: P: 50 ID: [id number] QRS: -4 T: 17 INTERPRETIVE STATEMENTS: Normal sinus rhythm Cannot rule out Anterior infarct, age undetermined Abnormal ECG Compared to ECG 06/26/2016 10:59:12 No significant changes Electronically Signed On 10-11-18 05:58:14 CDT by Jean Solitario
== END 2018-10-10 23:39 | disposition home or self-care (01) ==
LOC: ER 19:29
DX: I10 Essential (primary) hypertension (principal); R20.2 Paresthesia of skin
CPT/HCPCS: 36415; 71045; 80048; 80076; 81003; 81015; 81025; 83735; 83880; 84484; 85025; 85610; 87077; 87086; 87088; 87186; 93005; 99283

== ENCOUNTER 2022-11-10 14:56 | Emergency (ER) | payer SELFPAY ==
--- OUTSIDE RECORDS SUMMARY | 2022-11-10 15:02 | XMS REPORT | Continuity of Care Document ---
:[address] [facility] t Address [address] [facility] [address] [place] [address] Care Team Providers Name Role Phone KEITH MEHTA Attending Clinician Unavailable PAYTON Attending Clinician Unavailable MICHELLE MONROE Attending Clinician Unavailable Tj RN, Leti Attending Clinician Unavailable Keith Mehta MD Attending Clinician Dav DARLING, Ana Alcala Attending Clinician [phone] Lotus De Santiago MD Attending Clinician [phone] DR ROSA ISELA THOMAS Attending Clinician Unavailable KEITH MEHTA Admitting Clinician Unavailable PAYTON Admitting Clinician Unavailable LOTUS DE SANTIAGO Admitting Clinician Unavailable DR ROSA ISELA THOMAS Admitting Clinician Unavailable Payers Payer Name Policy Type Policy Number Effective Date Expiration Date S ource [place] [id number] 2021 2022 00:00:00 00:00:00 [place] [id number] WOMEN'S HEALTH PROGRAM (MEDICAID) Problems Condition Condition Condition Status Onset Resolution Last Treating Co mments Source Name Details Category Date Date Treatment Clinician Date Acute Acute Disease Active [facility] hypoxemic 3-27 [facility] respirator respirator 00:00: Me dical y failure y failure 00 Cent er due to due to COVID-19 COVID-19 Benign Benign Disease Active [facility] essential essential 3-27 [facility] HTN HTN 00:00: Medical Center COVID-19 COVID-19 Disease Active [facility] virus virus 06-24 [facility] infection infection 00:[facility]: [place] 00 [facility] Allergies, Adverse Reactions, Alerts Allergy Allergy Status Severity Reaction(s) Onset Inactive Treating Comm ents Source Name Type Date Date Clinician NO KNOWN Allergy Active [facility] Family History Family Member Diagnosis Comments Start Date Stop Date Source Natural father No Known Problem [facility] Natural mother No Known Problem [facility] Social History Social Habit Start Date Stop Date Quantity Comments Source Alcohol intake 2020-06-25 2020-06-25 Ex-drinker [facility] St Shruti es 00:00:00 00:00:00 (finding) [facility] Tobacco use and 2020-06-24 2020-06-[address] [facility] exposure 00:00:00 00:00:00 [facility] Sex Assigned At [address] 00:00:00 00:00:00 [facility] Smoking Status Start Date Stop Date Source Never Smoker [facility] Outreach Program Medications Ordered Filled Start Stop Current Ordering Indication Dosage Frequency Signature Comments Components Source Medication Medication Date Date Medication? Clinician (SIG) Name Name metFORMIN 2021- No 500mg Q.5D Take [address] [facility] [address] (GLUCOPHAGE 3-30 -30 tablet [facility] -XR) 500 MG 00:00: 23:59 (500 mg Me dical 24 hr 00 :00 total) by Center tablet mouth 2 (two) times daily. metFORMIN 2021- No 500mg Q.5D Take [address] [facility] [address] (GLUCOPHAGE 3-30 03-30 tablet [facility] -XR) 500 MG 00:00: 23:59 (500 mg Me dical 24 hr 00 :00 total) by Center tablet mouth 2 (two) times daily. dexAMETHaso 2020- No 6mg Take [address] [facility] ne 3-30 04-06 tablet (6 [facility] (DECADRON) 00:00: 23:59 mg total) M edical 6 MG tablet 00 :00 by mouth Cent er daily with breakfast for 7 days. dexAMETHaso 2020-2020- No 6mg Take [address] [facility] ne 3-30 04-06 tablet (6 [facility] (DECADRON) 00:00: 23:59 mg total) M edical 6 MG tablet 00 :00 by mouth Cent er daily with breakfast for 7 days. amlodipine amlodipine No amlodipine [place] 5 mg tablet 5 mg tablet 5 mg d a TAKE ONE TAKE ONE tablet [facility] (1) (1) TAKE ONE al TABLET(S) TABLET(S) (1) Healt h BY MOUTH BY MOUTH TABLET(S) Ou treac ONCE A DAY. ONCE A DAY. BY MOUTH h ONCE A Program DAY. FeroSul 325 FeroSul 325 No FeroSul [place] mg (65 mg mg (65 mg 325 mg (65 da iron) iron) mg iron) [facility] tablet TAKE tablet TAKE tablet al ONE (1) ONE (1) TAKE ONE Healt h TABLET(S) TABLET(S) (1) Outre ac BY MOUTH BY MOUTH TABLET(S) h ONCE A DAY. ONCE A DAY. BY MOUTH Program ONCE A DAY. 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 Index) [facility] BP Systolic 2022-02-26 00:00:00 150 mm[Hg] [facility] Body Weight 2022-02-26 00:00:00 392 [lb_av] [place] [facility] Height 2021-03-07 00:00:00 63 [in_i] [place] [facility] BMI (Body Mass 2021-03-07 00:00:00 70 kg/m2 [facility] 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 Index) [facility] BP Systolic 2021-03-07 00:00:00 137 mm[Hg] [facility] Body Weight 2021-03-07 00:00:00 395 [lb_av] [place] [facility] BP Diastolic 2021-03-07 00:00:00 88 mm[Hg] [place] [facility] HEIGHT 2020-06-24 19:50:00 160 cm WEIGHT 2020-06-24 19:50:00 171.4 kg Systolic blood 2020-06-27 12:00:00 130 mm[Hg] [facility] Diastolic blood 2020-06-27 12:00:00 83 mm[Hg] [facility] Heart rate 2020-06-27 12:00:00 69 /min [facility] Body temperature 2020-06-27 12:00:00 36.39 Mery [facility] Respiratory rate 2020-06-27 12:00:00 20 /min [facility] Oxygen saturation in 2020-06-27 12:00:00 92 /min [facility] Arterial blood by Medical Ce nter Pulse oximetry Body height 2020-06-24 19:50:00 160 cm [facility] Body weight 2020-06-24 19:50:00 171.4 kg [facility] BMI 2020-06-24 19:50:00 66.94 kg/m2 [facility] Procedures Procedure Date / Time Performing Clinician Source Performed POCT-GLUCOSE METER 2020-06-27 11:38:00 Lotus De Santiago [facility] POCT-GLUCOSE METER 2020-06-27 07:50:00 Lotus De Santiago [facility] BASIC METABOLIC PANEL (7) 2020-06-27 05:03:00 [facility] CBC (HEMOGRAM ONLY) 2020-06-27 05:03:00 [facility] MAGNESIUM 2020-06-27 05:03:00 [facility] PHOSPHORUS 2020-06-27 05:03:00 [facility] POCT-GLUCOSE METER 2020-06-26 20:50:00 [facility]SE [facility]ER 2020-06-26 16:56:[address] [facility] POCT-GLUCOSE METER 2020-06-26 11:56:00 [facility] HEMOGLOBIN A1C 2020-06-26 05:37:00 [facility] CHOLESTEROL, TOTAL 2020-06-26 05:37:00 Nat Marina [facility] C-REACTIVE PROTEIN 2020-06-26 05:37:00 [facility] LACTATE DEHYDROGENASE 2020-06-26 05:37:00 [facility] PROCALCITONIN 2020-06-26 05:37:00 [facility] HEPATIC FUNCTION PANEL 2020-06-26 05:37:00 [facility] TROPONIN I 2020-06-26 05:37:00 [facility] BASIC METABOLIC PANEL (7) 2020-06-26 05:37:00 [facility] CBC (HEMOGRAM ONLY) 2020-06-26 05:37:00 [facility] MAGNESIUM 2020-06-26 05:37:00 [facility] PHOSPHORUS 2020-06-26 05:37:00 [facility] FERRITIN 2020-06-26 05:36:00 [facility] D-DIMER 2020-06-26 05:36:00 [facility] PROTHROMBIN TIME/INR 2020-06-26 05:36:00 [facility]ST [facility] VIEW PORTABLE 2020-06-25 07:51:00 Lotus De Santiago I [facility] / BEDSIDE [facility] CBC W/PLT COUNT & AUTO 2020-06-24 21:24:00 [facility] PROTHROM[facility] TIME/INR 2020-06-24 21:24:00 [facility] FIBRINOGEN 2020-06-24 21:24:00 [facility] CREATINE KINASE (CK) 2020-06-24 21:24:00 [facility] TROPONIN I 2020-06-24 21:24:00 [facility] PROCALCITONIN 2020-06-24 21:24:00 [facility] LACTATE DEHYDROGENASE 2020-06-24 21:24:00 [place] [facility] ([facility]) [facility] FERRITIN 2020-06-24 21:24:00 [facility] C-REACTIVE PROTEIN 2020-06-24 21:24:00 [facility] B-TYPE NATRIURETIC FACTOR 2020-06-24 21:24:00 [facility] (BNP) [facility] D-DIMER 2020-06-24 21:24:00 [facility] COMPREHENSIVE METABOLIC 2020-06-24 21:24:00 [facility] [facility] CBC W/PLT COUNT & AUTO 2020-06-24 21:24:00 [facility] MAGNESIUM 2020-06-24 21:24:00 [facility] PHOSPHORUS 2020-06-24 21:24:00 [facility] REPORT OF PROCEDURE - 2020-06-24 00:00:00 Provider, Default [facility] ENDOSCOPY SCAN Scanning [facility] Plan of Care Planned Activity Planned Date Details Comments Source Future Scheduled 2023-06-27 Lipid panel (procedure) [facility] Test 00:00:00 [code = 32849593] Medical Ce nter Future Scheduled 2023-06-27 Lipid panel (procedure) [facility] Test 00:00:00 [code = 17289768] Medical Ce nter Future Scheduled 2023-06-27 Lipid panel (procedure) [facility] Test 00:00:00 [code = 65182979] Medical Ce nter Future Scheduled 2022-11-29 Influenza Vaccine (#1) [facility] 00:00[facility]00 [code = Influenza Vaccine Me dical Center (#1)] Future Scheduled 2022-03-[address] [facility] Test 00:00:00 (12+) [code = DEPRESSION Med ical Center SCREENING (12+)] Future Scheduled 2021-06-[address] [facility] Test 00:00:00 Counseling and Screening Med ical Center (12+) [code = Tobacco Cessation Counseling and Screening (12+)] Future Scheduled 2020-12-[address] [facility] 00:00:00 measurement (procedure) [facility] [code = 21908557] Future Scheduled 2020-12-[address] [facility] Test 00:00:00 measurement (procedure) [facility] [code = 14073276] Future Scheduled 2020-12-[address] [facility] Test 00:00:00 measurement (procedure) [facility] [code = 43103631] Future Scheduled 2020-11-29 INFLUENZA VACCINE (#1) [facility] 00:00:00 [code = INFLUENZA VACCINE Me dical Center (#1)] Future Scheduled 2020-11-29 INFLUENZA VACCINE (#1) [facility] 00:00:00 [code = INFLUENZA VACCINE Me dical Center (#1)] Future Scheduled 2020-03-[address] [facility] Test 00:00:00 (12+) [code = DEPRESSION Med ical Center SCREENING (12+)] Future Scheduled 2020-03-[address] [facility] Test 00:00:00 (12+) [code = DEPRESSION Med ical Center SCREENING (12+)] Future Scheduled 2006 Screening for malignant [facility] Test 00:00:00 neoplasm of cervix Medical C enter (procedure) [code = 446290320] Future Scheduled 2006 Screening for malignant [facility] Test 00:00:00 neoplasm of cervix Medical C enter (procedure) [code = 929914782] Future Scheduled 2006 Screening for malignant [facility] Test 00:00:00 neoplasm of cervix Medical C enter (procedure) [code = 943549368] Future Scheduled 2004-02-11 DTAP/TDAP/TD VACCINES ([address] [facility] Test 00:00:00 - Tdap) [code = Medical Cent er DTAP/TDAP/TD VACCINES (1 - Tdap)] Future Scheduled 2004-02-11 DTAP/TDAP/TD VACCINES ([address] [facility] Test 00:00:00 - Tdap) [code = Medical Cent er DTAP/TDAP/TD VACCINES (1 - Tdap)] Future Scheduled 2004-02-11 DTAP/TDAP/TD VACCINES ([address] [facility] Test 00:00:00 - Tdap) [code = Medical Cent er DTAP/TDAP/TD VACCINES (1 - Tdap)] Future Scheduled 2003 HEPATITIS C [facility]CRE[facility]ING [facility] 00:00:00 [code = HEPATITIS C Medical Center SCREENING] Future Scheduled 2003 HEPATITIS C [facility]CRE[facility]ING [facility] 00:00:00 [code = HEPATITIS C Medical Center SCREENING] Future Scheduled 2003 HEPATITIS C [facility]CRE[facility]ING [facility] 00:00:00 [code = HEPATITIS C Medical Center SCREENING] Future Scheduled 2000-02-[address] [facility] 00:00:00 virus screening Medical Cent er (procedure) [code = 506061461] Future Scheduled 1997 COVID-19 VACCINE (1) [facility] Test 00:00:00 [code = COVID-19 VACCINE Med ical Center (1)] Future Scheduled 1997 COVID-19 VACCINE (1) [facility] Test 00:00:00 [code = COVID-19 VACCINE Med ical Center (1)] Future Scheduled 1995 DIABETIC EYE EXAM [code = [facility] Test 00:00:00 DIABETIC EYE EXAM] Medical C enter Future Scheduled 1995 Diabetic foot examination [facility] Test 00:00:00 (regime/therapy) [code = Med ical Center 076559301] Future Scheduled 1995 Urine screening for [facility] Test 00:00:00 protein (procedure) [code Ok dical Center = 176863977] Future Scheduled 1995 DIABETIC EYE EXAM [code = [facility] Test 00:00:00 DIABETIC EYE EXAM] Medical C enter Future Scheduled 1995 Diabetic foot examination [facility] Test 00:00:00 (regime/therapy) [code = Med ical Center 566598618] Future Scheduled 1995 Urine screening for [facility] Test 00:00:00 protein (procedure) [code Ok dical Center = 157265436] Future Scheduled 1995 DIABETIC EYE EXAM [code = [facility] Test 00:00:00 DIABETIC EYE EXAM] Medical C enter Future Scheduled 1995 Urine screening for [facility] Test 00:00:00 protein (procedure) [code Ok dicwv Center = 627614520] Future Scheduled 1991 PNEUMOCOCCAL VACCINE 0-[address] [facility] Test 00:00:00 YRS (1 of 2 - PPSV23) Medica l Center [code = PNEUMOCOCCAL VACCINE 0-64 YRS (1 of 2 - PPSV23)] Future Scheduled 1991 PNEUMOCOCCAL VACCINE 0-[address] [facility] Test 00:00:00 YRS (1 of 2 - PPSV23) Medica l Center [code = PNEUMOCOCCAL VACCINE 0-64 YRS (1 of 2 - PPSV23)] Future Scheduled 1991 Pneumococcal Vaccine: [facility] Test 00:00:00 0-64 Years (1 - PCV) Medical Center [code = Pneumococcal Vaccine: 0-64 Years (1 - PCV)] Future Scheduled 1985 COVID-19 VACCINE (#1[facility] 00:00:00 [code = COVID-19 VACCINE Med ical Center (#1)] Encounters Start End Encounter Admission Attending Care Care Encounter Source Date/Time Date/Time Type Type Clinicians Facility Department ID 2021-01-06 [id number] 10:12:01 [facility] 2022-03-21 2022-03-21 Outpatient LISTER_MELI MEHOP MEHOP 910 [place] 00:00:00 00:00:00 [facility] 2022-03-14 2022-03-14 Outpatient LISTER_MELI MEHOP MEHOP 910 [place] 00:00:00 00:00:00 [facility] 2022-02-26 2022-02-26 Outpatient LISTER_MELI MEHOP MEHOP 910 [place] 00:00:00 00:00:00 [facility] 2022-02-26 2022-02-26 Anita TOBIN [place] - [id number] M [place] 00:00:00 00:00:00 Sandy Menon, [facility] Ep[facility] p FILM CUTTER: [address], HOG TRADER [facility] [place] [address] [facility] , Ph. 2021-11-02 2021-11-02 Outpatient XAVIER_MELI MEHOP MEHOP 910 [place] 00:00:00 00:00:00 [facility] 2021-07-20 2021-07-20 Outpatient LISTER_MELI MEHOP MEHOP 910 [place] 00:00:00 00:00:00 [facility] 2021-03-07 2021-03-07 Anita PARK_MELI MEHOP [place] - [id number] [place] 00:00:00 00:00:00 Sandy BOLA Guzman [address], [facility] FILM CUTTER: [address], HOG TR[address] [facility] [place] [address] [facility] , Ph. 2020-07-04 2020-07-04 Outpatient STEFANIE FER, [facility] [id number] SLE 00:00:00 00:00:00 MICHELLE 2020-07-03 2020-07-03 Telephone Tj [facility] [id number] 00:00[facility]00 00:00:00 [facility] 2020-06-24 2020-06-27 [facility] Keith El [facility] [id number] 18:31:00 16:21:00 Encounter [facility] 2020-06-24 2020-06-24 Travel [facility] [id number] [facility] 00:[facility]00 00:00:00 [facility] 2019-04-05 2019-04-05 Outpatient RAMBO TOBIN MSPARADISE [place] 04:34:00 04:34:00 SSA 0106 da [facility] Program 2017-11-16 2017-11-16 Emergency E ROSA ISELA THOMAS [facility] [id number] [facility] 11:22:00 12:19:00 [facility] Results Test Description Test Time Test Comments Results Result Comments Source POC-Glucose meter 2020-06-27 11:53:00 Test Item Value Reference Range Interpretation Comme nts POC-Glucose Meter (test code = 118 mg/dL 70-110 H : Pt. refused rpt tst: TESTED AT 1538) [facility] [address] [facility], [address]: [address] Clerk /Business Objects Developer ID = [id number] for ALONDRA GONZALES Lab Interpretation (test code = Abnormal 24490-2) [facility] [id number] 11:53:00 Test Item Value Reference Range Interpretation Comments POC-Glucose Meter (test 118 mg/dL 70-110 H : Pt . refused rpt code = 1538) tst: TESTED AT [facility] [address] [facility], [address]: [address] Court Clerk/Techni damien ID = [id number] for JAZIEL FERNANDO A Lab Interpretation (test Abnormal code = 08106-9) [facility] [id number] 11:53:00 Test Item Value Reference Range Interpretation Comments POC-GLUCOSE METER 118 mg/dL 70-110 H : Pt. refu sed rpt tst: (BEAKER) (test code = TESTED AT [facility] [address] 1538) [place], [address]: [address] Clerk/Techni damien ID = [id number] for ALONDRA MUNOZ POCT-GLUCOSE [id number] 08:02:00 Test Item Value Reference Range Interpretation Comments POC-GLUCOSE METER 85 mg/dL 70-110 : TESTED A T [facility] [address] ([facility] (test code = DEBORAH Kim [facility], 1538) [address]: Circuit Court Clerk/Techni damien ID = [id number] for ALONDRA GONZALES [id number] 06:02:00 Test Item Value Reference Range Interpretation Comments Phosphorus (test code 4.3 mg/dL 2.3-4.7 Specim en = 2777-1) slightly hemolyzed CAILIN (test code = CAILIN) Circuit Court Clerk ID - PIAYA L Lab Interpretation Normal (test code = 57666-8) [facility] [id number] 06:02:00 Test Item Value Reference Range Interpretation Comments Sodium (test code = 143 meq/L 311-124 3450-2) Potassium (test code = 3.8 meq/L 3.5-5.1 Speci men slightly 2823-3) hemolyzed Chloride (test code = 108 meq/L 98-107 H 2075-0) CO2 (test code = 27 meq/L 22-29 2028-9) BUN (test code = 14 mg/dL 7-21 3094-0) Creatinine (test code 0.70 mg/dL 0.57-1.25 Specim en slightly = 2160-0) hemolyzed Glucose (test code = 95 mg/dL 70-105 2345-7) Calcium (test code = 8.3 mg/dL 8.4-10.2 L 27844-1) EGFR (test code = 115 mL/min/1.73 [place] [address]-8) NOT ACCURATE CREATININE CLEARANCE IN PREDICTING GLOMERULAR FILTRATION RATE . ESTIMATED GFR I S NOT APPLICABLE FOR DIALYSIS PATIENTS. CAILIN (test code = CAILIN) Circuit Court Clerk ID - PIAYA L Lab Interpretation Abnormal (test code = 47401-3) [facility]2021-03-30 06:02:00 Test Item Value Reference Range Interpretation Comments Magnesium (test code = 2.1 mg/dL 1.6-2.6 Speci men 31574-8) slightly hemolyzed CAILIN (test code = CAILIN) Circuit Court Clerk ID - PIAYA L Lab Interpretation Normal (test code = 37586-7) [facility]2021-[facility]-30 06:02:00 Test Item Value Reference Range Interpretation Comments Phosphorus (test code 4.3 mg/dL 2.3-4.7 Specim en = 2777-1) slightly hemolyzed CAILIN (test code = CAILIN) [facility] [address] Clerk ID - PIAYA L Lab Interpretation Normal (test code = 57069-5) [facility] [id number] 06:02:00 Test Item Value Reference Range Interpretation Comments Sodium (test code = 143 meq/L 344-768 0771-2) Potassium (test code = 3.8 meq/L 3.5-5.1 Speci men slightly 2823-3) hemolyzed Chloride (test code = 108 meq/L 98-107 H 2075-0) CO2 (test code = 27 meq/L 22-29 8-9) BUN (test code = 14 mg/dL 7-21 3094-0) Creatinine (test code 0.70 mg/dL 0.57-1.25 Specim en slightly = 2160-0) hemolyzed Glucose (test code = 95 mg/dL 70-105 2345-7) Calcium (test code = 8.3 mg/dL 8.4-10.2 L 63723-0) EGFR (test code = 115 mL/min/1.[place] [address]-3) NOT ACCURATE CREATININE CLEARANCE IN PREDICTING GLOMERULAR FILTRATION RATE . ESTIMATED GFR I S NOT APPLICABLE FOR DIALYSIS PATIENTS. CAILIN (test code = CAILIN) Circuit Court Clerk ID - PIAYA L Lab Interpretation Abnormal (test code = 73348-2) [facility]2021-03-30 06:02:00 Test Item Value Reference Range Interpretation Comments Magnesium (test code = 2.1 mg/dL 1.6-2.6 Speci men 76007-5) slightly hemolyzed CAILIN (test code = CAILIN) Circuit Court Clerk ID - PIAYA L Lab Interpretation Normal (test code = 38155-8) [facility]UM2021-03-30 06:02:00 Test Item Value Reference Range Interpretation Comments MAGNESIUM (BEAKER) 2.1 mg/dL 1.6-2.6 Specimen slightly (test code = 627) hemolyzed Circuit [facility] Clerk ID - IGNACIA [id number] 06:02:00 Test Item Value Reference Range Interpretation Comments PHOSPHORUS (BEAKER) 4.3 mg/dL 2.3-4.7 Specimen slightly (test code = 604) hemolyzed Circuit Court Clerk ID - IGNACIA LBASIC METABOLIC [id number] 06:02:00 Test Item Value Reference Range Interpretation Comments SODIUM (BEAKER) 143 meq/L 136-145 (test code = 381) POTASSIUM (BEAKER) 3.8 meq/L 3.5-5.1 Specimen slightly (test code = 379) hemolyzed CHLORIDE (BEAKER) 108 meq/L 98-107 H (test code = 382) CO2 (BEAKER) (test 27 meq/L 22-29 code = 355) BLOOD UREA NITROGEN 14 mg/dL 7-21 (BEAKER) (test code = 354) CREATININE (BEAKER) 0.70 mg/dL 0.57-1.25 Specimen slightly (test code = 358) hemolyzed GLUCOSE RANDOM 95 mg/dL 70-105 (BEAKER) (test code = 652) CALCIUM (BEAKER) 8.3 mg/dL 8.4-10.2 L (test code = 697) EGFR (BEAKER) (test 115 mL/min/1.73 ESTIM ATED GFR IS code = 1092) sq m NOT ACCURATE CREATININE CLEARANCE IN PREDICTING GLOMERULAR FILTRATION RATE . ESTIMATED GFR I S NOT APPLICABLE FOR DIALYSIS PATIEN TS. Circuit Court Clerk ID - IGNACIA LCBC (Hemogram only)2020-06-27 05:11:00 Test Item Value Reference Range Interpretation Comments WBC (test code = 6690-2) 7.2 See_Comment [A utomated message] The system [employer] generated this result transmitted ref erence range: 3.5 - 10 .5 K/L. The refe rence range was not u sed to interpret this result as normal/abnor mal. RBC (test code = 789-8) 4.16 See_Comment [Au tomated message] The system [employer] generated this result transmitted ref erence range: 3.93 - 5 .22 M/L. The refe rence range was not u sed to interpret this result as normal/abnor mal. MCHC (test code = 786-4) 31.2 See_Comment L [A utomated message] The system [employer] generated this result transmitted ref erence range: 32.2 - 3 5.5 GM/DL. The refe rence range was not u sed to interpret this result as normal/abnor mal. Hematocrit (test code = 35.6 % 34.1-44.9 4544-3) MCV (test code = 787-2) 85.6 fL 79.4-94.8 MCH (test code = 785-6) 26.7 pg 25.6-32.2 RDW (test code = 788-0) 16.2 % 11.7-14.4 H Platelets (test code = 326 See_Comment [Aut omated message] 777-3) The system [employer] generated this result transmitted ref erence range: 150 - 45 0 K/CU MM. The referen ce range was not u sed to interpret this result as normal/abnor mal. MPV (test code = 10.5 fL 9.4-12.3 44829-8) nRBC (test code = 413) 0 See_Comment [Aut omated message] The system [employer] generated this result transmitted ref erence range: 0 - 0 /1 00 WBC. The refere nce range was not u sed to interpret this result as normal/abnor mal. Lab Interpretation (test Abnormal code = 24774-5) [facility] (Hemogram only)2020-06-27 05:11:00 Test Item Value Reference Range Interpretation Comments WBC (test code = 6690-2) 7.2 See_Comment [A utomated message] The system [employer] generated this result transmitted ref erence range: 3.5 - 10 .5 K/L. The refe rence range was not u sed to interpret this result as normal/abnor mal. RBC (test code = 789-8) 4.16 See_Comment [Au tomated message] The system [employer] generated this result transmitted ref erence range: 3.93 - 5 .22 M/L. The refe rence range was not u sed to interpret this result as normal/abnor mal. MCHC (test code = 786-4) 31.2 See_Comment L [A utomated message] The system [employer] generated this result transmitted ref erence range: 32.2 - 3 5.5 GM/DL. The refe rence range was not u sed to interpret this result as normal/abnor mal. Hematocrit (test code = 35.6 % 34.1-44.9 4544-3) MCV (test code = 787-2) 85.6 fL 79.4-94.8 MCH (test code = 785-6) 26.7 pg 25.6-32.2 RDW (test code = 788-0) 16.2 % 11.7-14.4 H Platelets (test code = 326 See_Comment [Aut omated message] 777-3) The system [employer] generated this result transmitted ref erence range: 150 - 45 0 K/CU MM. The referen ce range was not u sed to interpret this result as normal/abnor mal. MPV (test code = 10.5 fL 9.4-12.3 28402-3) nRBC (test code = 413) 0 See_Comment [Aut omated message] The system [employer] generated this result transmitted ref erence range: 0 - 0 /1 00 WBC. The refere nce range was not u sed to interpret this result as normal/abnor mal. Lab Interpretation (test Abnormal code = 56736-2) [facility] (HEMOGRAM ONLY)2020-06-27 05:11:00 Test Item Value Reference Range Interpretation Comments WHITE BLOOD CELL COUNT (BEAKER) 7.2 K/ L 3.5-10.5 (test code = 775) RED BLOOD CELL COUNT (BEAKER) 4.16 M/ L 3.93-5.22 (test code = 761) HEMOGLOBIN (BEAKER) (test code = 11.1 GM/DL 11.2-15.7 L 410) HEMATOCRIT (BEAKER) (test code = 35.6 % 34.1-44.9 411) MEAN CORPUSCULAR VOLUME (BEAKER) 85.6 fL 79.4-94.8 (test code = 753) MEAN CORPUSCULAR HEMOGLOBIN 26.7 pg 25.6-32.2 (BEAKER) (test code = 751) MEAN CORPUSCULAR HEMOGLOBIN CONC 31.2 GM/DL 32.2-35.5 L (BEAKER) (test code = 752) RED CELL DISTRIBUTION WIDTH 16.2 % 11.7-14.4 H (BEAKER) (test code = 412) PLATELET COUNT (BEAKER) (test 326 K/CU MM 150-450 code = 756) MEAN PLATELET VOLUME (BEAKER) 10.5 fL 9.4-12.3 (test code = 754) NUCLEATED RED BLOOD CELLS 0 /100 WBC 0-0 (BEAKER) (test code = 413) POCT-GLUCOSE [id number] 21:02:00 Test Item Value Reference Range Interpretation Comments POC-GLUCOSE METER 101 mg/dL 70-110 : TESTED A T [facility] 6720 (BEAKER) (test code = [facility], 153) [address]: Circuit Court Clerk/Techni damien ID = [id number] for Kate sanderson (contract)Ailyn POCT-GLUCOSE [id number] 17:32:00 Test Item Value Reference Range Interpretation Comments POC-GLUCOSE METER 117 mg/dL 70-110 H : TESTED A T [facility] (AKER) (test code = [facility], 153) [address]: Circuit Court Clerk/Techni damien ID = [id number] for SARAH PORRAS, VASILE POCT-GLUCOSE [id number] 13:03:00 Test Item Value Reference Range Interpretation Comments POC-GLUCOSE METER 126 mg/dL 70-110 H : TESTED A T [facility] 67[facility] (BEAKER) (test code [facility], = 1538) [address]: Circuit Court Clerk/Techni damien ID = [id number] for LENKA BURGOS Cholesterol, [id number] 10:38:00 Test Item Value Reference Range Interpretation Comments Cholesterol (test code 129 mg/dL = 2093-3) CAILIN (test code = CAILIN) Cholesterol Reference Range: Low Risk <200 Borderline 200-239 High Risk >[address] Clerk ID - KRANTHI Feliz [facility] [id number] 10:38:00 Test Item Value Reference Range Interpretation Comments Cholesterol (test code 129 mg/dL = 2093-3) CAILIN (test code = CAILIN) Cholesterol Reference Range: Low Risk <200 Borderline 200-239 High Risk >[address] Clerk ID - KRANTHI Feliz [facility], [id number] 10:38:00 Test Item Value Reference Range Interpretation Comments CHOLESTEROL (BEAKER) (test code = 129 mg/dL 631) Cholesterol Reference Range: Low Risk <200 Borderline 200-239 High Risk >[address] Clerk ID - JANCHemoglobin [id number] 08:09:00 Test Item Value Reference Range Interpretation Comments Hemoglobin A1C (test code = 4548-4) 6.6 % 4.3-6.1 H Lab Interpretation (test code = Abnormal 20203-5) [facility] [id number] 08:09:00 Test Item Value Reference Range Interpretation Comments Hemoglobin A1C (test code = 4548-4) 6.6 % 4.3-6.1 H Lab Interpretation (test code = Abnormal 19989-0) [facility]MO[facility] [id number] 08:09:00 Test Item Value Reference Range Interpretation Comments HEMOGLOBIN A1C (BEAKER) (test code = 6.6 % 4.3-6.1 H 368) [id number] 07:30:00 Test Item Value Reference Range Interpretation Comments Procalcitonin (test <0.05 See_Comment [Automa goldy code = 06015-0) message] The system which generated this result transmit goldy reference range : <0.05 ng/mL. Th e reference range was not used to interpret this result as normal/abnormal . CAILIN (test code = CAILIN) SEPSIS RISK (ng/mL)Low: 0.05-0.50Inter mediate: 0.51-2.00High: >=2.01 Lab Interpretation Normal (test code = 44956-7) [facility] HospitalOdwkspFbnfbvtaysouj7659-02-21 07:30:00 Test Item Value Reference Range Interpretation Comments Procalcitonin (test <0.05 See_Comment [Automa goldy code = 01119-3) message] The system which generated this result transmit goldy reference range : <0.05 ng/mL. Th e reference range was not used to interpret this result as normal/abnormal . CAILIN (test code = CAILIN) SEPSIS RISK (ng/mL)Low: 0.05-0.50Inter mediate: 0.51-2.00High: >=2.01 Lab Interpretation Normal (test code = 11585-0) [facility] Ho[id number] 07:30:00 Test Item Value Reference Range Interpretation Comments PROCALCITONIN (BEAKER) (test code = < ng/mL <0.05 3036) SEPSIS RISK (ng/mL)Low: 0.05-0.50Intermediate: 0.51-2.00High: >=2.01Ferritin 2020-06-26 06:44:00 Test Item Value Reference Range Interpretation Comments Ferritin (test code = 147.43 ng/mL 5.00-275.00 2276-4) CAILIN (test code = CAILIN) [address] Clerk ID - DUYEN M Lab Interpretation (test Normal code = 06027-1) [facility]in2021-[facility]-29 06:44:00 Test Item Value Reference Range Interpretation Comments Ferritin (test code = 147.43 ng/mL 5.00-275.00 2276-4) CAILIN (test code = CAILIN) [address] [facility] Clerk ID - DUYEN M Lab Interpretation (test Normal code = 29815-2) [facility]IN2021-[facility]-29 06:44:00 Test Item Value Reference Range Interpretation Comments FERRITIN (BEAKER) (test code = 147.43 ng/mL 5.00-275.00 361) [address] Clerk ID - DUYEN MTroponin [id number] 06:29:00 Test Item Value Reference Range Interpretation Comments Troponin I (test code = <0.01 0.00-0.03 55283-1) CAILIN (test code = CAILIN) Troponin I (TnI) levels must be interpreted in the context of the presenting symptoms and the clinical findings. Elevated TnI levels indicate myocardial damage, but are not specific for ischemic heart disease. Elevated TnI levels are seen in patients with other cardiac conditions (including myocarditis and congestive heart failure), and slight TnI elevations occur in patients with other conditions, including sepsis, renal failure, acidosis, acute neurological disease, and persistent tachyarrhythmia.Opera tor ID - DUYEN M Lab Interpretation (test Normal code = 23178-4) [facility] [id number] 06:29:00 Test Item Value Reference Range Interpretation Comments Troponin I (test code = <0.01 0.00-0.03 25497-6) CAILIN (test code = CAILIN) Troponin I (TnI) levels must be interpreted in the context of the presenting symptoms and the clinical findings. Elevated TnI levels indicate myocardial damage, but are not specific for ischemic heart disease. Elevated TnI levels are seen in patients with other cardiac conditions (including myocarditis and congestive heart failure), and slight TnI elevations occur in patients with other conditions, including sepsis, renal failure, acidosis, acute neurological disease, and persistent tachyarrhythmia.Opera tor ID - DUYEN M Lab Interpretation (test Normal code = 29723-7) [facility] [id number] 06:29:00 Test Item Value Reference Range Interpretation Comments TROPONIN I (BEAKER) (test code = 397) < ng/mL 0.00-0.03 Troponin I (TnI) levels must be interpreted in the context of the presenting symptoms and the clinical findings. Elevated TnI levels indicate myocardial damage, but are not specific for ischemic heart disease. Elevated TnI levels are seen in patients with other cardiac conditions (including myocarditis and congestive heart failure), and slight TnI elevations occur in patients with other conditions, including sepsis, renal failure, acidosis, acute neurological disease, and persistent tachyarrhythmia.[address] Clerk ID - DUYEN MBASIC METABOLIC [id number] 06:29:00 Test Item Value Reference Range Interpretation Comments SODIUM (BEAKER) (test 144 meq/L 136-145 code = 381) POTASSIUM (BEAKER) 3.8 meq/L 3.5-5.1 (test code = 379) CHLORIDE (BEAKER) 106 meq/L 98-107 (test code = 382) CO2 (BEAKER) (test 29 meq/L 22-29 code = 355) BLOOD UREA NITROGEN 10 mg/dL 7-21 (BEAKER) (test code = 354) CREATININE (BEAKER) 0.68 mg/dL 0.57-1.25 (test code = 358) GLUCOSE RANDOM 101 mg/dL 70-105 (BEAKER) (test code = 652) CALCIUM (BEAKER) 8.1 mg/dL 8.4-10.2 L (test code = 697) EGFR (BEAKER) (test INSUFFIC IENT CLINICAL code = 1092) DATA TO CALCULA TE ESTIMATED GFR. [facility] Clerk ID - IGNACIA GOTTIepatic function [id number] 06:26:00 Test Item Value Reference Range Interpretation Comments Protein, Total (test 7.2 See_Comment [Autom ated code = 2885-2) message] The system which generated this result transmit goldy reference range : 6.0 - 8.3 gm/dL . The reference range was not u sed to interpret th is result as normal/abnormal . Albumin (test code = 3.1 g/dL 3.5-5.0 L 26415-2) Total Bilirubin (test 0.4 mg/dL 0.2-1.2 code = 1974-2) Bilirubin, Direct 0.2 mg/dL 0.1-0.5 (test code = 1967-7) Alkaline Phosphatase 58 U/L 40-150 (test code = 6768-6) AST (test code = 22 U/L 5-34 1920-8) ALT (test code = 18 U/L 6-55 1742-6) CAILIN (test code = CAILIN) [facility] Clerk ID - IGNACIA L Lab Interpretation Abnormal (test code = 02527-7) [facility]act[facility] dehydrogenase (LDH)2020-06-26 06:26:00 Test Item Value Reference Range Interpretation Comments LDH (test code = 2532-0) 601 U/L 125-220 H CAILIN (test code = CAILIN) [facility] Clerk ID - IGNACIA L Lab Interpretation (test Abnormal code = 10471-5) [facility]C-Reactive [id number] 06:26:00 Test Item Value Reference Range Interpretation Comments CRP (test code = 676) 5.36 mg/dL 0.00-0.50 H CAILIN (test code = CAILIN) [facility] Clerk ID - IGNACIA L Lab Interpretation (test Abnormal code = 13678-3) [facility] HospitalHepatic function [id number] 06:26:00 Test Item Value Reference Range Interpretation Comments Protein, Total (test 7.2 See_Comment [Autom ated code = 2885-2) message] The system which generated this result transmit goldy reference range : 6.0 - 8.3 gm/dL . The reference range was not u sed to interpret th is result as normal/abnormal . Albumin (test code = 3.1 g/dL 3.5-5.0 L 05894-1) Total Bilirubin (test 0.4 mg/dL 0.2-1.2 code = 1975-2) Bilirubin, Direct 0.2 mg/dL 0.1-0.5 (test code = 1967-7) Alkaline Phosphatase 58 U/L 40-150 (test code = 6768-6) AST (test code = 22 U/L 5-34 1920-8) ALT (test code = 18 U/L 6-55 1742-6) CAILIN (test code = CAILIN) [facility] Clerk ID - IGNACIA L Lab Interpretation Abnormal (test code = 08275-8) [facility] (LDH)2020-06-26 06:26:00 Test Item Value Reference Range Interpretation Comments LDH (test code = 2532-0) 601 U/L 125-220 H CAILIN (test code = CAILIN) [facility] Clerk ID - IGNACIA L Lab Interpretation (test Abnormal code = 56786-2) [facility]-Reactive [id number] 06:26:00 Test Item Value Reference Range Interpretation Comments CRP (test code = 676) 5.36 mg/dL 0.00-0.50 H CAILIN (test code = CAILIN) [facility] Clerk ID - PIMARGARET L Lab Interpretation (test Abnormal code = 44836-8) [facility] HospitalMAGNESIUM2021-03-29 06:26:00 Test Item Value Reference Range Interpretation Comments MAGNESIUM (BEAKER) (test code = 2.4 mg/dL 1.6-2.6 627) [facility] Clerk ID - IGNACIA [id number] 06:26:00 Test Item Value Reference Range Interpretation Comments PHOSPHORUS (BEAKER) (test code = 3.4 mg/dL 2.3-4.7 604) [facility] Court Clerk ID - IGNACIA LHEPATIC FUNCTION [id number] 06:26:00 Test Item Value Reference Range Interpretation Comments TOTAL PROTEIN (BEAKER) (test code = 7.2 gm/dL 6.0-8.3 770) ALBUMIN (BEAKER) (test code = 1145) 3.1 g/dL 3.5-5.0 L BILIRUBIN TOTAL (BEAKER) (test code 0.4 mg/dL 0.2-1.2 = 377) BILIRUBIN DIRECT (BEAKER) (test 0.2 mg/dL 0.1-0.5 code = 706) ALKALINE PHOSPHATASE (BEAKER) (test 58 U/L 40-150 code = 346) AST (SGOT) (BEAKER) (test code = 22 U/L 5-34 353) ALT (SGPT) (BEAKER) (test code = 18 U/L 6-55 347) [facility] Court Clerk ID Sushila BETH LLACTATE DEHYDROGENASE (LDH)2020-06-26 06:26:00 Test Item Value Reference Range Interpretation Comments LACTATE DEHYDROGENASE (BEAKER) (test 601 U/L 125-220 H code = 635) [facility] Clerk ID Sushila BETH LC-REACTIVE [id number] 06:26:00 Test Item Value Reference Range Interpretation Comments C-REACTIVE PROTEIN (BEAKER) (test 5.36 mg/dL 0.00-0.50 H code = 676) Circuit Court Clerk MILES BETH [id number] 06:20:00 Test Item Value Reference Range Interpretation Comments D-Dimer, Quant (test 0.94 See_Comment H [Autom ated code = 03636-8) message] The system which generated this result transmitted reference range : <0.50 MG/L FEU. The reference range was not used to interpr et this result as normal/abnormal . CAILIN (test code = CAILIN) Intended Use: The D-Dimer Assay can be used to aid in the diagnosis of Deep Vein Thrombosis (DVT) and Pulmonary Embolism Disease (PED).In patients with low pre-test probability, various studies concerning STA Liatest D-dimer test have reported that with a cutoff value of 0.50 MG/L FEU, the Negative Predictive Value (NPV) regarding the exclusion of thrombosis is within 95-100% range. Lab Interpretation Abnormal (test code = 84376-3) [facility] CenterD-[id number] 06:20:00 Test Item Value Reference Range Interpretation Comments D-Dimer, Quant (test 0.94 See_Comment H [Autom ated code = 43994-9) message] The system which generated this result transmitted reference range : <0.50 MG/L FEU. The reference range was not used to interpr et this result as normal/abnormal . ACILIN (test code = CAILIN) Intended Use: The D-Dimer Assay can be used to aid in the diagnosis of Deep Vein Thrombosis (DVT) and Pulmonary Embolism Disease (PED).In patients with low pre-test probability, various studies concerning STA Liatest D-dimer test have reported that with a cutoff value of 0.50 MG/L FEU, the Negative Predictive Value (NPV) regarding the exclusion of thrombosis is within 95-100% range. Lab Interpretation Abnormal (test code = 40371-1) [facility]D-[id number] 06:20:00 Test Item Value Reference Range Interpretation Comments D-DIMER QUANTITATIVE (BEAKER) 0.94 MG/L FEU <0.50 H (test code = 671) Intended Use: The D-Dimer Assay can be used to aid in the diagnosis of Deep Vein Thrombosis (DVT) and Pulmonary Embolism Disease (PED).In patients with low pre- test probability, various studies concerning STA Liatest D-dimer test have reported that with a cutoff value of 0.50 MG/L FEU, the Negative Predictive Value (NPV) regarding the exclusion of thrombosis is within 95-100% range. Prothrombin time/[id number] 06:17:00 Test Item Value Reference Interpretation Comments Range Protime (test code = 13.9 See_Comment [Autom ated 5902-2) message] The system which generated this result transmitted reference range : 11.9 - 14.2 seconds. The reference range was not used to interpret this result as normal/abnormal . INR (test code = 1.10 See_Comment [Automated 6301-6) message] The system which generated this result transmitted reference range : <=5.90. The reference range was not used to interpret this result as normal/abnormal . CAILIN (test code = Effective 08/26/2018: CAILIN) PT Reference Range ChangeNew: 11.9-14.2 Previous: 11.7-14.7 RECOMMENDED COUMADIN/WARFARIN INR THERAPY RANGESSTANDARD DOSE: 2.0-3.0 Includes: PROPHYLAXIS for venous thrombosis, systemic embolization; TREATMENT for venous thrombosis and/or pulmonary embolus.HIGH RISK: Target INR is 2.5-3.5 for patients wiht mechanical heart valves. Lab Interpretation Normal (test code = 41152-0) [facility] HospitalProthrombin time/[id number] 06:17:00 Test Item Value Reference Interpretation Comments Range Protime (test code = 13.9 See_Comment [Autom ated 5902-2) message] The system which generated this result transmitted reference range : 11.9 - 14.2 seconds. The reference range was not used to interpret this result as normal/abnormal . INR (test code = 1.10 See_Comment [Automated 6301-6) message] The system which generated this result transmitted reference range : <=5.90. The reference range was not used to interpret this result as normal/abnormal . CAILIN (test code = Effective 08/26/2018: CAILIN) PT Reference Range ChangeNew: 11.9-14.2 Previous: 11.7-14.7 RECOMMENDED COUMADIN/WARFARIN INR THERAPY RANGESSTANDARD DOSE: 2.0-3.0 Includes: PROPHYLAXIS for venous thrombosis, systemic embolization; TREATMENT for venous thrombosis and/or pulmonary embolus.HIGH RISK: Target INR is 2.5-3.5 for patients wiht mechanical heart valves. Lab Interpretation Normal (test code = 58976-5) [facility] HospitalPROTHROMBIN TIME/[id number] 06:17:00 Test Item Value Reference Range Interpretation Comments PROTIME (BEAKER) 13.9 seconds 11.9-14.2 (test code = 759) INR (BEAKER) (test 1.10 See_Comment [Automat ed message] code = 370) The system [employer] h generated this result transmitted ref erence range: <=5.90. The reference range was not used to int erpret this result as normal/abnormal . Effective 08/26/2018: PT Reference Range ChangeNew: 11.9-14.2 Previous: 11.7- 14.7RECOMMENDED COUMADIN/WARFARIN INR THERAPY RANGESSTANDARD DOSE: 2.0-3.0 Includes: PROPHYLAXIS for venous thrombosis, systemic embolization; TREATMENT for venous thrombosis and/or pulmonary embolus.HIGH RISK: Target INR is 2.5-3.5 for patients wiht mechanical heart valves.CBC (HEMOGRAM ONLY)2020-06-26 06:04:00 Test Item Value Reference Range Interpretation Comments WHITE BLOOD CELL COUNT (BEAKER) 6.8 K/ L 3.5-10.5 (test code = 775) RED BLOOD CELL COUNT (BEAKER) 4.22 M/ L 3.93-5.22 (test code = 761) HEMOGLOBIN (BEAKER) (test code = 11.2 GM/DL 11.2-15.7 410) HEMATOCRIT (BEAKER) (test code = 36.1 % 34.1-44.9 411) MEAN CORPUSCULAR VOLUME (BEAKER) 85.5 fL 79.4-94.8 (test code = 753) MEAN CORPUSCULAR HEMOGLOBIN 26.5 pg 25.6-32.2 (BEAKER) (test code = 751) MEAN CORPUSCULAR HEMOGLOBIN CONC 31.0 GM/DL 32.2-35.5 L (BEAKER) (test code = 752) RED CELL DISTRIBUTION WIDTH 16.1 % 11.7-14.4 H (BEAKER) (test code = 412) PLATELET COUNT (BEAKER) (test 331 K/CU MM 150-450 code = 756) MEAN PLATELET VOLUME (BEAKER) 10.6 fL 9.4-12.3 (test code = 754) NUCLEATED RED BLOOD CELLS 0 /100 WBC 0-0 (BEAKER) (test code = 413) RAD, CHEST, 1 VIEW, NON [id number] 08:04:00Reason for exam:->covidShould this be performed at the bedside?->Yes [facility] : 1985 Sex: FFINAL REPORT RAD, CHEST, 1 VIEW, NON DEPT INDICATION: covid COMPARISON: None FINDINGS: Portable frontal view of the chest. IMPRESSION: Limited by underpenetration.Support Lines: None Lungs and pleura: Scattered airspace disease. No pneumothorax.Heart and mediastinum: Enlarged cardiac silhouet te.Additional findings: None. Signed: JR Rufino, Chayo Finn Verified Date/Time: 06/25/2020 08:04:25 Reading Location: [facility] C013V Neuro Reading Room FERRITIN 2020-06-25 02:01:00 Test Item Value Reference Range Interpretation Comments FERRITIN (BEAKER) (test code = 167.75 ng/mL 5.00-275.00 361) Circuit Court Clerk ID - DUYEN [id number] 22:34:00 Test Item Value Reference Range Interpretation Comments PROCALCITONIN (BEAKER) (test code = < ng/mL <0.05 3036) SEPSIS RISK (ng/mL)Low: 0.05-0.50Intermediate: 0.51-2.00High: >=2.01 Comprehensive metabolic [id number] 22:11:00 Test Item Value Reference Range Interpretation Comments Protein, Total (test 7.7 See_Comment Specime n slightly code = 2885-2) hemolyzed [Automated message] The system which generated this result transmit goldy reference range : 6.0 - 8.3 gm/dL . The reference range was not u sed to interpret th is result as normal/abnormal . Albumin (test code = 3.3 g/dL 3.5-5.0 L Specime n slightly 20030-7) hemolyzed Alkaline Phosphatase 50 U/L 40-150 (test code = 6768-6) Total Bilirubin (test 0.4 mg/dL 0.2-1.2 Specim en slightly code = 1974-2) hemolyzed Sodium (test code = 142 meq/L 928-625 7049-2) Potassium (test code 4.2 meq/L 3.5-5.1 Specime n slightly = 6453-3) hemolyzed Chloride (test code = 105 meq/L 98-107 2074-0) CO2 (test code = 25 meq/L 22-29 2027-) BUN (test code = 6 mg/dL 7-21 L 3094-0) Creatinine (test code 0.72 mg/dL 0.57-1.25 Specim en slightly = 2160-0) hemolyzed Glucose (test code = 129 mg/dL 70-105 H 2345-7) Calcium (test code = 8.1 mg/dL 8.4-10.2 L 11040-4) AST (test code = 36 U/L 5-34 H Specimen sl ightly 1920-8) hemolyzed ALT (test code = 17 U/L 6-55 Specimen sl ightly 1742-6) hemolyzed EGFR (test code = [place] [address]-0) CLINICAL DATA T O CALCULATE ESTIMATED GFR. CAILIN (test code = CAILIN) Circuit Court Clerk ID - DB Lab Interpretation Abnormal (test code = 18058-6) [facility] HospitalComprehensive metabolic [id number] 22:11:00 Test Item Value Reference Range Interpretation Comments Protein, Total (test 7.7 See_Comment Specime n slightly code = 2885-2) hemolyzed [Automated message] The system which generated this result transmit goldy reference range : 6.0 - 8.3 gm/dL . The reference range was not u sed to interpret th is result as normal/abnormal . Albumin (test code = 3.3 g/dL 3.5-5.0 L Specime n slightly 05285-7) hemolyzed Alkaline Phosphatase 50 U/L 40-150 (test code = 6768-6) Total Bilirubin (test 0.4 mg/dL 0.2-1.2 Specim en slightly code = 1974-2) hemolyzed Sodium (test code = 142 meq/L 490-861 4199-2) Potassium (test code 4.2 meq/L 3.5-5.1 Specime n slightly = 2823-3) hemolyzed Chloride (test code = 105 meq/L 98-107 5-0) CO2 (test code = 25 meq/L 22-29 2027-9) BUN (test code = 6 mg/dL 7-21 L 3094-0) Creatinine (test code 0.72 mg/dL 0.57-1.25 Specim en slightly = 2160-0) hemolyzed Glucose (test code = 129 mg/dL 70-105 H 2345-7) Calcium (test code = 8.1 mg/dL 8.4-10.2 L 83256-6) AST (test code = 36 U/L 5-34 H Specimen sl ightly 1920-8) hemolyzed ALT (test code = 17 U/L 6-55 Specimen sl ightly 1742-6) hemolyzed EGFR (test code = [place] [address]-0) CLINICAL DATA T O CALCULATE ESTIMATED GFR. CAILIN (test code = CAILIN) Circuit Court Clerk ID - DB Lab Interpretation Abnormal (test code = 42651-6) [facility] HospitalCOMPRE[facility]ENSIVE METABOLIC [id number] 22:11:00 Test Item Value Reference Range Interpretation Comments TOTAL PROTEIN 7.7 gm/dL 6.0-8.3 Specimen sligh tly (BEAKER) (test code = hemoly zed 770) ALBUMIN (BEAKER) 3.3 g/dL 3.5-5.0 L Specimen sl ightly (test code = 1145) hemolyzed ALKALINE PHOSPHATASE 50 U/L 40-150 (BEAKER) (test code = 346) BILIRUBIN TOTAL 0.4 mg/dL 0.2-1.2 Specimen sli ghtly (BEAKER) (test code = hemoly zed 377) SODIUM (BEAKER) (test 142 meq/L 136-145 code = 381) POTASSIUM (BEAKER) 4.2 meq/L 3.5-5.1 Specimen slightly (test code = 379) hemolyzed CHLORIDE (BEAKER) 105 meq/L 98-107 (test code = 382) CO2 (BEAKER) (test 25 meq/L 22-29 code = 355) BLOOD UREA NITROGEN 6 mg/dL 7-21 L (BEAKER) (test code = 354) CREATININE (BEAKER) 0.72 mg/dL 0.57-1.25 Specimen slightly (test code = 358) hemolyzed GLUCOSE RANDOM 129 mg/dL 70-105 H (BEAKER) (test code = 652) CALCIUM (BEAKER) 8.1 mg/dL 8.4-10.2 L (test code = 697) AST (SGOT) (BEAKER) 36 U/L 5-34 H Specimen slightly (test code = 353) hemolyzed ALT (SGPT) (BEAKER) 17 U/L 6-55 Specimen slightly (test code = 347) hemolyzed EGFR (BEAKER) (test INSUFFIC IENT CLINICAL code = 1092) DATA TO CALCULA TE ESTIMATED GFR. Circuit [facility] Clerk ID - DBB-type Natriuretic Factor (BNP)2020-06-24 22:10:00 Test Item Value Reference Range Interpretation Comments BNP (test code = 40284-1) <10 0-100 CAILIN (test code = CAILIN) [facility] Court Clerk ID - DB Lab Interpretation (test Normal code = 11664-9) [facility]-24 22:10:00 Test Item Value Reference Range Interpretation Comments BNP (test code = 24010-4) <10 0-100 CAILIN (test code = CAILIN) [facility] Clerk ID - DB Lab Interpretation (test Normal code = 64066-0) [facility]2020-06-24 22:10:00 Test Item Value Reference Range Interpretation Comments LACTATE DEHYDROGENASE 647 U/L 125-220 H Specim en slightly (BEAKER) (test code = hemoly zed 635) [facility] Clerk ID - DBB-TYPE NATRIURETIC FACTOR (BNP)2020-06-24 22:10:00 Test Item Value Reference Range Interpretation Comments B-TYPE NATRIURETIC PEPTIDE (BEAKER) < pg/mL 0-100 (test code = 700) [facility] Clerk ID - DBTROPONIN [id number] 22:04:00 Test Item Value Reference Range Interpretation Comments TROPONIN I (BEAKER) (test code = 397) < ng/mL 0.00-0.03 Troponin I (TnI) levels must be interpreted in the context of the presenting symptoms and the clinical findings. Elevated TnI levels indicate myocardial damage, but are not specific for ischemic heart disease. Elevated TnI levels are seen in patients with other cardiac conditions (including myocarditis and congestive heart failure), and slight TnI elevations occur in patients with other conditions, including sepsis, renal failure, acidosis, acute neurological disease, and persistent tachyarrhythmia.[facility]uit Court Clerk ID - [id number] 22:00:00 Test Item Value Reference Range Interpretation Comments D-DIMER QUANTITATIVE (BEAKER) 0.63 MG/L FEU <0.50 H (test code = 671) Intended Use: The D-Dimer Assay can be used to aid in the diagnosis of Deep Vein Thrombosis (DVT) and Pulmonary Embolism Disease (PED).In patients with low pre- test probability, various studies concerning STA Liatest D-dimer test have reported that with a cutoff value of 0.50 MG/L FEU, the Negative Predictive Value (NPV) regarding the exclusion of thrombosis is within 95-100% range. Creatine Kinase (CK)2020-06-24 21:58:00 Test Item Value Reference Range Interpretation Comments Total CK (test code = 544 U/L 29-200 H 2157-6) CAILIN (test code = CAILIN) [facility] Clerk ID - DB Lab Interpretation (test Abnormal code = 74071-3) [facility]2020-06-24 21:58:00 Test Item Value Reference Range Interpretation Comments Total CK (test code = 544 U/L 29-200 H 2157-6) CAILIN (test code = CAILIN) [facility] Clerk ID - DB Lab Interpretation (test Abnormal code = 09371-4) [facility] 21:58:00 Test Item Value Reference Range Interpretation Comments MAGNESIUM (BEAKER) 2.1 mg/dL 1.6-2.6 Specimen slightly (test code = 627) hemolyzed Circuit [facility] Clerk ID - [id number] 21:58:00 Test Item Value Reference Range Interpretation Comments PHOSPHORUS (BEAKER) 2.1 mg/dL 2.3-4.7 L Specimen slightly (test code = 604) hemolyzed Circuit [facility] Clerk ID - DBCREATINE KINASE (CK)2020-06-24 21:58:00 Test Item Value Reference Range Interpretation Comments CREATINE KINASE TOTAL (BEAKER) (test 544 U/L 29-200 H code = 380) [facility] Clerk ID - DBC-REACTIVE [id number] 21:58:00 Test Item Value Reference Range Interpretation Comments C-REACTIVE PROTEIN (BEAKER) (test 12.32 mg/dL 0.00-0.50 H code = 676) [facility] Clerk ID - [id number] 21:57:00 Test Item Value Reference Range Interpretation Comments Fibrinogen (test code = 3255-7) 448 mg/dl 225-434 H Lab Interpretation (test code = Abnormal 27772-6) [facility] 21:57:00 Test Item Value Reference Range Interpretation Comments Fibrinogen (test code = 3255-7) 448 mg/dl 225-434 H Lab Interpretation (test code = Abnormal 15858-8) [id number] 21:57:00 Test Item Value Reference Range Interpretation Comments PROTIME (BEAKER) 13.5 seconds 11.9-14.2 (test code = 759) INR (BEAKER) (test 1.06 See_Comment [Automat ed message] code = 370) The system [employer] generated this result transmitted ref erence range: <=5.90. The reference range was not used to int erpret this result as normal/abnormal . Effective 08/26/2018: PT Reference Range ChangeNew: 11.9-14.2 Previous: 11.7- 14.7RECOMMENDED COUMADIN/WARFARIN INR THERAPY RANGESSTANDARD DOSE: 2.0-3.0 Includes: PROPHYLAXIS for venous thrombosis, systemic embolization; TREATMENT for venous thrombosis and/or pulmonary embolus.HIGH RISK: Target INR is 2.5-3.5 for patients wiht mechanical heart valves.[id number] 21:57:00 Test Item Value Reference Range Interpretation Comments FIBRINOGEN LEVEL (BEAKER) (test 448 mg/dl 225-434 H code = 658) CBC with platelet count + automated [id number] 21:38:00 Test Item Value Reference Range Interpretation Comments WBC (test code = 6690-2) 4.7 See_Comment [A utomated message] The system [employer] generated this result transmitted ref erence range: 3.5 - 10 .5 K/L. The refe rence range was not u sed to interpret this result as normal/abnor mal. RBC (test code = 789-8) 4.37 See_Comment [Au tomated message] The system [employer] generated this result transmitted ref erence range: 3.93 - 5 .22 M/L. The refe rence range was not u sed to interpret this result as normal/abnor mal. MCHC (test code = 786-4) 31.2 See_Comment L [A utomated message] The system [employer] generated this result transmitted ref erence range: 32.2 - 3 5.5 GM/DL. The refe rence range was not u sed to interpret this result as normal/abnor mal. Hematocrit (test code = 36.9 % 34.1-44.9 4544-3) MCV (test code = 787-2) 84.4 fL 79.4-94.8 MCH (test code = 785-6) 26.3 pg 25.6-32.2 RDW (test code = 788-0) 16.2 % 11.7-14.4 H Platelets (test code = 226 See_Comment [Aut omated message] 777-3) The system [employer] generated this result transmitted ref erence range: 150 - 45 0 K/CU MM. The referen ce range was not u sed to interpret this result as normal/abnor mal. MPV (test code = 11.1 fL 9.4-12.3 46474-4) nRBC (test code = 413) 0 See_Comment [Aut omated message] The system [employer] generated this result transmitted ref erence range: 0 - 0 /1 00 WBC. The refere nce range was not u sed to interpret this result as normal/abnor mal. % Neutros (test code = 86 % 429) % Lymphs (test code = 12 % 430) % Monos (test code = 2 % 431) % Eos (test code = 432) 0 % % Baso (test code = 437) 0 % # Neutros (test code = 4.05 See_Comment [Aut omated message] 670) The system [employer] generated this result transmitted ref erence range: 1.56 - 6 .13 K/L. The refe rence range was not u sed to interpret this result as normal/abnor mal. # Lymphs (test code = 0.57 See_Comment L [Auto mated message] 414) The system [employer] generated this result transmitted ref erence range: 1.18 - 3 .74 K/L. The refe rence range was not u sed to interpret this result as normal/abnor mal. # Monos (test code = 0.07 See_Comment L [Autom ated message] 415) The system [employer] generated this result transmitted ref erence range: 0.24 - 0 .36 K/L. The refe rence range was not u sed to interpret this result as normal/abnor mal. # Eos (test code = 416) 0.00 See_Comment L [Au tomated message] The system [employer] generated this result transmitted ref erence range: 0.04 - 0 .36 K/L. The refe rence range was not u sed to interpret this result as normal/abnor mal. # Baso (test code = 417) 0.00 See_Comment L [A utomated message] The system [employer] generated this result transmitted ref erence range: 0.01 - 0 .08 K/L. The refe rence range was not u sed to interpret this result as normal/abnor mal. Immature 0 % 0-1 Granulocytes-Relative (test code = 2801) Lab Interpretation (test Abnormal code = 41536-8) [facility] with platelet count + automated [id number] 21:38:00 Test Item Value Reference Range Interpretation Comments WBC (test code = 6690-2) 4.7 See_Comment [A utomated message] The system [employer] generated this result transmitted ref erence range: 3.5 - 10 .5 K/L. The refe rence range was not u sed to interpret this result as normal/abnor mal. RBC (test code = 789-8) 4.37 See_Comment [Au tomated message] The system [employer] generated this result transmitted ref erence range: 3.93 - 5 .22 M/L. The refe rence range was not u sed to interpret this result as normal/abnor mal. MCHC (test code = 786-4) 31.2 See_Comment L [A utomated message] The system [employer] generated this result transmitted ref erence range: 32.2 - 3 5.5 GM/DL. The refe rence range was not u sed to interpret this result as normal/abnor mal. Hematocrit (test code = 36.9 % 34.1-44.9 4544-3) MCV (test code = 787-2) 84.4 fL 79.4-94.8 MCH (test code = 785-6) 26.3 pg 25.6-32.2 RDW (test code = 788-0) 16.2 % 11.7-14.4 H Platelets (test code = 226 See_Comment [Aut omated message] 297-3) The system [employer] generated this result transmitted ref erence range: 150 - 45 0 K/CU MM. The referen ce range was not u sed to interpret this result as normal/abnor mal. MPV (test code = 11.1 fL 9.4-12.3 22341-9) nRBC (test code = 413) 0 See_Comment [Aut omated message] The system [employer] generated this result transmitted ref erence range: 0 - 0 /1 00 WBC. The refere nce range was not u sed to interpret this result as normal/abnor mal. % Neutros (test code = 86 % 429) % Lymphs (test code = 12 % 430) % Monos (test code = 2 % 431) % Eos (test code = 432) 0 % % Baso (test code = 437) 0 % # Neutros (test code = 4.05 See_Comment [Aut omated message] 670) The system [employer] generated this result transmitted ref erence range: 1.56 - 6 .13 K/L. The refe rence range was not u sed to interpret this result as normal/abnor mal. # Lymphs (test code = 0.57 See_Comment L [Auto mated message] 414) The system [employer] generated this result transmitted ref erence range: 1.18 - 3 .74 K/L. The refe rence range was not u sed to interpret this result as normal/abnor mal. # Monos (test code = 0.07 See_Comment L [Autom ated message] 415) The system [employer] generated this result transmitted ref erence range: 0.24 - 0 .36 K/L. The refe rence range was not u sed to interpret this result as normal/abnor mal. # Eos (test code = 416) 0.00 See_Comment L [Au tomated message] The system [employer] generated this result transmitted ref erence range: 0.04 - 0 .36 K/L. The refe rence range was not u sed to interpret this result as normal/abnor mal. # Baso (test code = 417) 0.00 See_Comment L [A utomated message] The system [employer] generated this result transmitted ref erence range: 0.01 - 0 .08 K/L. The refe rence range was not u sed to interpret this result as normal/abnor mal. Immature 0 % 0-1 Granulocytes-Relative (test code = 2801) Lab Interpretation (test Abnormal code = 85996-0) [facility] W/PLT COUNT & AUTO [id number] 21:38:00 Test Item Value Reference Range Interpretation Comments WHITE BLOOD CELL COUNT (BEAKER) 4.7 K/ L 3.5-10.5 (test code = 775) RED BLOOD CELL COUNT (BEAKER) 4.37 M/ L 3.93-5.22 (test code = 761) HEMOGLOBIN (BEAKER) (test code = 11.5 GM/DL 11.2-15.7 410) HEMATOCRIT (BEAKER) (test code = 36.9 % 34.1-44.9 411) MEAN CORPUSCULAR VOLUME (BEAKER) 84.4 fL 79.4-94.8 (test code = 753) MEAN CORPUSCULAR HEMOGLOBIN 26.3 pg 25.6-32.2 (BEAKER) (test code = 751) MEAN CORPUSCULAR HEMOGLOBIN CONC 31.2 GM/DL 32.2-35.5 L (BEAKER) (test code = 752) RED CELL DISTRIBUTION WIDTH 16.2 % 11.7-14.4 H (BEAKER) (test code = 412) PLATELET COUNT (BEAKER) (test 226 K/CU MM 150-450 code = 756) MEAN PLATELET VOLUME (BEAKER) 11.1 fL 9.4-12.3 (test code = 754) NUCLEATED RED BLOOD CELLS 0 /100 WBC 0-0 (BEAKER) (test code = 413) NEUTROPHILS RELATIVE PERCENT 86 % (BEAKER) (test code = 429) LYMPHOCYTES RELATIVE PERCENT 12 % (BEAKER) (test code = 430) MONOCYTES RELATIVE PERCENT 2 % (BEAKER) (test code = 431) EOSINOPHILS RELATIVE PERCENT 0 % (BEAKER) (test code = 432) BASOPHILS RELATIVE PERCENT 0 % (BEAKER) (test code = 437) NEUTROPHILS ABSOLUTE COUNT 4.05 K/ L 1.56-6.13 (BEAKER) (test code = 670) LYMPHOCYTES ABSOLUTE COUNT 0.57 K/ L 1.18-3.74 L (BEAKER) (test code = 414) MONOCYTES ABSOLUTE COUNT (BEAKER) 0.07 K/ L 0.24-0.36 L (test code = 415) EOSINOPHILS ABSOLUTE COUNT 0.00 K/ L 0.04-0.36 L (BEAKER) (test code = 416) BASOPHILS ABSOLUTE COUNT (BEAKER) 0.00 K/ L 0.01-0.08 L (test code = 417) IMMATURE GRANULOCYTES-RELATIVE 0 % 0-1 PERCENT (BEAKER) (test code = 2802)
--- NOTE | 2022-11-10 15:51 | RAD REPORT ---
EXAM DESCRIPTION: CT - Facial Bones W/ Mpr - 11/10/2022 3:34 pm CLINICAL HISTORY: Left facial swelling and pain COMPARISON: None TECHNIQUE: Computed axial tomography of the face was obtained. Coronal and sagittal reconstruction w as performed. All CT scans are performed using dose optimization technique as appropriate and may include automated exposure control or mA/KV adjustment according to patient size. FINDINGS: Left preseptal swelling. The intra orbital fat is clear. Left globe appears unremarkable. Left supra orbital swelling. Swelling extends into the left frontal scalp. The visualized airway is unremarkable. The visualized parotid and visualize submandibular glands unremarkable Small lymph nodes are present A fracture is not seen. A TMJ dislocation is not noted. Fluid within the sinuses is not seen. IMPRESSION: Left preseptal cellulitis. Cellulitis extends into supra orbital tissues and left frontal scalp
--- NOTE | 2022-11-10 15:52 | RAD REPORT ---
EXAM DESCRIPTION: CT - Head Brain Wo Cont - 11/10/2022 3:34 pm CLINICAL HISTORY: Head swelling and pain COMPARISON: None TECHNIQUE: Computed axial tomography of the head was obtained. IV contrast was not requested. All CT scans are performed using dose optimization technique as appropriate and may include automated exposure control or mA/KV adjustment according to patient size. FINDINGS: Left temporal and left posterior frontal scalp swelling is present. A fluid-filled abscess is not seen. Underlying skull unremarkable An intracranial bleed is not seen The ventricles are normal in caliber No extra-axial fluid collection is noted. No significant hypodensity within brain seen. Fluid within the sinuses/ mastoids is not seen. IMPRESSION: Left temporal and left posterior frontal scalp swelling probably a cellulitis
[2022-11-10 15:56] LABS: Absolute Lymphocytes (CBC) 2.2 K/uL (0.7-4.9); Hematocrit 24.8 % (36.0-45.0); Lymphocytes % 21.1 % (15.3-44.8); MCV 61.9 fL (80-100); MPV 8.9 fL (7.6-11.3); Platelets 299 thou/uL (152-406)
[2022-11-10 15:59] LABS: Protime INR 1.18
[2022-11-10 16:06] LABS: Albumin 2.9 g/dL (3.4-5.0); Bilirubin Total 0.3 mg/dL (0.2-1.0); Potassium 3.3 mEq/L (3.5-5.1); Protein, Total 7.6 g/dL (6.4-8.2)
[2022-11-10] MEDS ORDERED: CLINDAMYCIN 900MG/D5W 900 MG/50 ML IVPB IV ONE (16:33)
[2022-11-10] MEDS ORDERED: HYDROCODONE/APAP 7.5/325 MG TAB ONE (16:33)
[2022-11-10] MEDS ORDERED: KETOROLAC 30 MG/ML INJ ONE (16:33)
--- NOTE | 2022-11-10 17:16 | EDPHYS ---
Physician Documentation [facility] Name: Hilda Myers Age: 37 yrs Sex: Female : 1985 Arrival Date: 11/10/2022 Time: 14:56 Bed 8 Private MD: ED Physician Christiano Sanchez HPI: 11/10 16:34 This 37 yrs old Black Female presents to ER via Ambulatory with complaints of Eye sb4 Swelling. 16:34 patient reports that she noticed a "knot" on her head a few days ago and it has slowly sb4 become more swollen. the swelling has now extended down her left face and is causing her eyelid to be swollen. she reports pain in the area but denies painful eye movements or changes in vision. she denies any fever, chest pain, shortness of breath. Historical: - Allergies: 15:10 No Known Allergies; nj1 - PMHx: 15:10 Hypertension; nj1 16:30 low iron; aa5 - PSHx: 15:10 Cholecystectomy; nj1 - Immunization history:: Client reports having NOT received the Covid vaccine. - Social history:: Smoking status: Patient denies any tobacco usage or history of. ROS: 16:38 Constitutional: Negative for fever, chills, and weight loss, ENT: Negative for injury, sb4 pain, and discharge, Neck: Negative for injury, pain, and swelling, Cardiovascular: Negative for chest pain, palpitations, and edema, Respiratory: Negative for shortness of breath, cough, wheezing, and pleuritic chest pain, Abdomen/GI: Negative for abdominal pain, nausea, vomiting, diarrhea, and constipation, MS/Extremity: Negative for injury and deformity, Neuro: Negative for headache, weakness, numbness, tingling, and seizure. 16:38 Eyes: Positive for swelling, Negative for blurry vision, discharge, foreign body sensation, itching, pain, photophobia. 16:38 Skin: Positive for abscess, swelling, of the left temporal area. Exam: 16:40 Constitutional: This is a well developed, well nourished patient who is awake, alert, sb4 and in no acute distress. ENT: Mucous membranes moist. Cardiovascular: Regular rate and rhythm with a normal S1 and S2. Respiratory: Lungs have equal breath sounds bilaterally, clear to auscultation and percussion. No rales, rhonchi or wheezes noted. No increased work of breathing, no retractions or nasal flaring. Back: No spinal tenderness. No costovertebral tenderness. Full range of motion. MS/ Extremity: Pulses equal, no cyanosis. Neurovascular intact. Full, normal range of motion. Neuro: Awake and alert, GCS 15, oriented to person, place, time, and situation. Cranial nerves II-XII grossly intact. Motor strength 5/5 in all extremities. Sensory grossly intact. Cerebellar exam normal. Normal gait. 16:40 Head/face: Noted is swelling, that is moderate, of the left eye, left islam and left temporal area, tenderness. 16:40 Eyes: Exam is negative for corneal abrasion, drainage, erythema, exudate, foreign body, papilledema, abnormalities of symmetry, size, shape and reaction of the pupils, ptosis, tearing, visual changes, Periorbital structures: swelling, that is moderate, on the left upper eyelid and lateral canthus of left eye. 16:40 Skin: abscess, that is small, approximately 2 cm(s), of the left temporal area, with drainage, that is purulent, with induration. Vital Signs: 15:06 BP 139 / 91; Pulse 106; Resp 18; Temp 99.7; Pulse Ox 97% on R/A; Weight 172.37 kg; nj1 Height 5 ft. 3 in. ; Pain 10/10; 16:34 BP 124 / 60; Pulse 94; Resp 16 S; Temp 99.6(O); Pulse Ox 100% on R/A; aa5 17:20 BP 131 / 67; Pulse 87; Resp 17 S; Pulse Ox 100% on R/A; aa5 15:06 Body Mass Index 67.31 (172.37 kg, 160.02 cm) nj1 15:06 Pain Scale: Adult nj1 MDM: 15:00 Patient medically screened. sb4 16:40 Differential diagnosis: preseptal cellulitis, orbital cellulitis, sepsis, allergic sb4 reaction, abscess. 17:12 Data reviewed: vital signs, nurses notes, lab test result(s), radiologic studies, CT sb4 scan, I have discussed the patient's presentation/case with the attending Emergency Department Physician; and as a result, I will discharge patient. Consideration of Admission/Observation Escalation of care including admission/observation considered. Historians other than the Patient: Spouse/Significant Other: spouse. Care significantly affected by the following chronic conditions: Hypertension. Counseling: I had a detailed discussion with the patient and/or guardian regarding: the historical points, exam findings, and any diagnostic results supporting the discharge/admit diagnosis, lab results, radiology results, to return to the emergency department if symptoms worsen or persist or if there are any questions or concerns that arise at home. ED course: I discussed the lab and radiology findings with patient. I did recommend admission for IV antibiotics but she declined. I administered 1 dose of IV clindamycin here and will discharge her with PO augmentin. I have given her strict return precautions, her and her understand. The abscess of her scalp is draining appropriately and she could not tolerate the pressure when I tried to express more fluid. We did a warm compress which helped and I advised her to continue doing those at home a few times a day. Regarding her anemia, she states that is it chronic and is followed by her PCP. She is supposed to be taking PO iron but has not been because of the way it makes her feel. She has an appointment with her PCP and will discuss this with him/her further. Copies of her lab results were provided. 11/10 15:05 Order name: Blood Culture Adult (2) sb 11/10 15:05 Order name: CBC with Diff; Complete Time: 22:59 sb4 11/10 15:05 Order name: CMP; Complete Time: 16:07 sb4 11/10 15:05 Order name: Lactate w/ 2H reflex if indic.; Complete Time: 16:07 sb4 11/10 15:05 Order name: Protime (+inr); Complete Time: 15:59 sb4 11/10 15:05 Order name: Ptt, Activated; Complete Time: 15:59 sb4 11/10 16:07 Order name: Type And Screen; Complete Time: 17:08 sb4 11/10 17:08 Order name: ABO/RH no charge; Complete Time: 17:12 EDMS 11/10 17:25 Order name: CBC Smear Scan; Complete Time: 22:59 EDMS 11/10 15:05 Order name: Facial Bones W/O Con CT; Complete Time: 15:52 sb4 11/10 15:05 Order name: Head Brain Wo Cont CT; Complete Time: 15:52 sb4 11/10 15:05 Order name: Cardiac monitoring; Complete Time: 15: sb4 11/10 15:05 Order name: IV Saline Lock - Large Bore; Complete Time: 15: sb4 11/10 15:05 Order name: Labs collected and sent; Complete Time: 15: sb4 11/10 15:05 Order name: O2 Per Protocol; Complete Time: 15: sb4 11/10 15:05 Order name: O2 Sat Monitoring; Complete Time: 15: sb4 11/10 15:05 Order name: Vital Signs; Complete Time: 15: sb4 Administered Medications: 16:33 Drug: Ketorolac IVP 15 mg Route: IVP; Site: right antecubital; aa5 16:57 Follow up: Response: No adverse reaction aa5 16:33 Drug: Hydrocodone-Acetaminophen PO (7.5 mg-325 mg) 1 tabs Route: PO; aa5 16:57 Follow up: Response: No adverse reaction aa5 16:34 Drug: Clindamycin IVPB 900 mg Route: IVPB; Infused Over: 30 mins; Site: right aa5 antecubital; 17:04 Follow up: Response: No adverse reaction; IV Status: Completed infusion aa5 Disposition Summary: 11/10/22 17:15 Discharge Ordered Location: Home sb4 Problem: new sb4 Symptoms: have improved sb4 Condition: Stable sb4 Diagnosis - Preseptal Cellulitis, Right sb4 - Cutaneous abscess of head [any part, except face] sb4 - Anemia, unspecified sb4 Followup: sb4 - With: Emergency Department - When: - Reason: Fever > 102 F, Worsening of condition Discharge Instructions: - Discharge Summary Sheet sb4 - Skin Abscess, [id number] sb4 - Preseptal Cellulitis, Adult sb4 - Iron Deficiency Anemia, Adult, [id number] sb4 Forms: - Medication Reconciliation Form sb4 - Thank You Letter sb4 - Antibiotic Education sb4 - Prescription Opioid Use sb4 - Patient Portal Instructions sb4 - Leadership Thank You Letter sb4 Prescriptions: - Augmentin 875-125 mg Oral Tablet - take 1 tablet by ORAL route every 12 hours for 10 days; 20 tablet; Refills: 0, sb4 Product Selection Permitted Signatures: Dispatcher Med[employer] Corrine Mayes RN RN aa5 Leticia Brar PA-C PA-C sb4 Breana Leroy, RN RN nj1 Corrections: (The following items were deleted from the chart) 15:48 15:05 Felix [email or web address]. [email or web address] ss
--- NOTE | 2022-11-10 17:16 | ER ---
Nurse's Notes [facility] Name: Hilda Myers Age: 37 yrs Sex: Female : 1985 Arrival Date: 11/10/2022 Time: 14:56 Bed 8 Private MD: Diagnosis: Preseptal Cellulitis, Right;Cutaneous abscess of head [any part, except face];Anemia, unspecified Presentation: 11/10 15:06 Chief complaint: Patient states: Left eye swelling, noticed today, about 2 hours ago. nj1 Has an bump on left side of head that has gotten bigger over the last 2 days. Coronavirus screen: Vaccine status: Patient reports being unvaccinated. Ebola Screen: Patient denies travel to an Ebola-affected area in the 21 days before illness onset. Initial Sepsis Screen: Does the patient meet any 2 criteria? HR > 90 bpm. No. Patient's initial sepsis screen is negative. Initial Sepsis Screen: Does the patient have a suspected source of infection? Yes: Other: Abscess on left side of head. Risk Assessment: Do you want to hurt yourself or someone else? Patient reports no desire to harm self or others. Onset of symptoms was November 10, 2022. 15:06 Method Of Arrival: Ambulatory [facility] 15:06 Acuity: JOY 3 nj1 Historical: - Allergies: 15:10 No Known Allergies; nj1 - PMHx: 15:10 Hypertension; nj1 16:30 low iron; aa5 - PSHx: 15:10 Cholecystectomy; nj1 - Immunization history:: Client reports having NOT received the Covid vaccine. - Social history:: Smoking status: Patient denies any tobacco usage or history of. Screenin:30 [facility] ED Fall Risk Assessment (Adult) History of falling in the last 3 months, aa5 including since admission No falls in past 3 months (0 pts) Confusion or Disorientation No (0 pts) Intoxicated or Sedated No (0 pts) Impaired Gait No (0 pts) Mobility Assist Device Used No (0 pt) Altered Elimination No (0 pt) Score/Fall Risk Level 0 - 2 = Low Risk Oriented to surroundings, Maintained a safe environment, Educated pt \T\ family on fall prevention, incl call for assistance when getting out of bed. Abuse screen: Denies threats or abuse. Nutritional screening: No deficits noted. Tuberculosis screening: No symptoms or risk factors identified. Assessment: 15:30 General: Appears uncomfortable, Behavior is calm, cooperative. Pain: Complains of pain aa5 in left temporal area Pain radiates to left eye Pain currently is 10 out of 10 on a pain scale. Quality of pain is described as tender, Pain began 2-3 days ago. Is continuous. Neuro: Level of Consciousness is awake, alert, obeys commands, Oriented to person, place, time, situation. Cardiovascular: Heart tones S1 S2 present Rhythm is regular. Respiratory: Airway is patent Respiratory effort is even, unlabored, Respiratory pattern is regular, symmetrical. GI: Abdomen is obese, Abd is soft and non tender X 4 quads. : No signs and/or symptoms were reported regarding the genitourinary system. EENT: left eyelid swelling noted. . Derm: Skin is dry, Skin is normal, Skin temperature is warm Abscess located on left temporal area is nickel sized, has no drainage, is raised, hair loss noted to surrounding area. Musculoskeletal: Range of motion: intact in all extremities. 16:34 Neuro: Level of Consciousness is awake, alert, obeys commands, Oriented to person, aa5 place, time, situation. Respiratory: Airway is patent Respiratory effort is even, unlabored, Respiratory pattern is regular, symmetrical. Derm: Skin is dry, Skin is normal, Skin temperature is warm. 16:34 Reassessment: Small amount of purulent drainage noted to abscess to left temporal area, aa5 warm compress applied per PA VO.. 17:30 Reassessment:. Neuro: Level of Consciousness is awake, alert, obeys commands, Oriented aa5 to person, place, time, situation. Respiratory: Airway is patent Respiratory effort is even, unlabored, Respiratory pattern is regular, symmetrical. Derm: Skin is dry, Skin is normal, Skin temperature is warm. Vital Signs: 15:06 BP 139 / 91; Pulse 106; Resp 18; Temp 99.7; Pulse Ox 97% on R/A; Weight 172.37 kg; nj1 Height 5 ft. 3 in. ; Pain 10/10; 16:34 BP 124 / 60; Pulse 94; Resp 16 S; Temp 99.6(O); Pulse Ox 100% on R/A; aa5 17:20 BP 131 / 67; Pulse 87; Resp 17 S; Pulse Ox 100% on R/A; aa5 15:06 Body Mass Index 67.31 (172.37 kg, 160.02 cm) nj1 15:06 Pain Scale: Adult nj1 ED Course: 14:58 Patient arrived in ED. mr 15:00 Leticia Brar PA-C is PHCP. sb4 15:00 Christiano Sanchez MD is Attending Physician. sb4 15:00 Leticia Brar PA-C is PHCP. sb4 15:00 Christiano Sanchez MD is Attending Physician. sb4 15:10 Triage completed. nj1 15:10 Arm band placed on left wrist. nj1 15:16 Corrine Bruce, XAVIER is Primary Nurse. aa5 15:30 Patient has correct armband on for positive identification. Bed in low position. Call aa5 light in reach. Side rails up X 1. 15:30 CBC with Diff Sent. bc6 15:30 CMP Sent. bc6 15:30 Lactate w/ 2H reflex if indic. Sent. bc6 15:30 Protime (+inr) Sent. bc6 15:30 Ptt, Activated Sent. bc6 15:30 Inserted saline lock: 20 gauge in right antecubital area, using aseptic technique. bc6 Blood collected. 15:36 Facial Bones W/O Con CT In Process Unspecified. EDMS 15:36 Head Brain Wo Cont CT In Process Unspecified. EDMS 17:30 No provider procedures requiring assistance completed. IV discontinued, intact, aa5 bleeding controlled, No redness/swelling at site. Pressure dressing applied. Administered Medications: 16:33 Drug: Ketorolac IVP 15 mg Route: IVP; Site: right antecubital; aa5 16:57 Follow up: Response: No adverse reaction aa5 16:33 Drug: Hydrocodone-Acetaminophen PO (7.5 mg-325 mg) 1 tabs Route: PO; aa5 16:57 Follow up: Response: No adverse reaction aa5 16:34 Drug: Clindamycin IVPB 900 mg Route: IVPB; Infused Over: 30 mins; Site: right aa5 antecubital; 17:04 Follow up: Response: No adverse reaction; IV Status: Completed infusion aa5 Medication: 17:30 VIS not applicable for this client. aa5 Outcome: 17:15 Discharge ordered by . sb4 17:30 Discharged to home ambulatory, with family. aa5 17:30 Condition: stable 17:30 Discharge instructions given to patient, Instructed on discharge instructions, follow up and referral plans. medication usage, Demonstrated understanding of instructions, follow-up care, medications, Prescriptions given X 1. 17:31 Patient left the ED. aa5 Signatures: Dispatcher [employer] Phoebe Senior, Corrine, RN RN aa5 Leticia Brar PA-C PA-C 4 Ritu Jimenez 6 Breana Leroy RN RN nj1 Corrections: (The following items were deleted from the chart) 16:20 15:06 Chief complaint: Patient states: Left eye swelling, noticed today, about 2 hours nj1 ago. Has an abscess on left side of head, noticed a small bump about 2 days ago that has gotten bigger. nj1
[2022-11-10 17:24] LABS: Platelet Estimate ADEQ; White Blood Cell Scan OK (OK)
[2022-11-10 17:25] LABS: Anisocytosis 1+; Blood Morphology Comment NOTED (NOT SEEN); Hypochromasia 2+; Polychromasia SLIGHT
[2022-11-10 17:44] VITALS: BP 139/91; TEMP 99.7; O2SAT 97
== END 2022-11-10 17:31 | disposition home or self-care (01) ==
LOC: ER 14:56
DX: L03.213 Periorbital cellulitis (principal); L02.811 Cutaneous abscess of head [any part, except face]; D64.9 Anemia, unspecified
CPT/HCPCS: 36415; 70450; 70486; 76377; 80053; 83605; 85025; 85610; 85730; 86850; 86900; 86901; 87040; 96365; 96375; 99284